=== PATIENT | male | born 1965 | race Caucasian/White ===

== ENCOUNTER → 2019-08-14 11:03 | Outpatient (CLI) | payer BC, SELFPAY ==
--- NOTE | 2019-08-14 11:08 | XR_ITS ---
PROCEDURE: XR ELBOW RT MIN 3V CLINICAL INDICATION: FALL ON RT ELBOW,PAIN/SWELLING Right elbow pain and swelling following injury COMPARISON: No exams were available for comparison FINDINGS: There is a faint lucency along the articular surface of the radial head laterally. This is nonspecific and could be related to artifact from overlying spurring. There is spurring of the radial neck and the coracoid process. No displaced fat pad is evident. Other findings:None. IMPRESSION: There are mild osteoarthritic changes of the elbow joint. There is a questionable subarticular lucency along the radial head laterally possibly due to artifact. Consider follow-up exam in 7-[address] scan for confirmation. Dictated by: Adan Rivera MD 08/14/2019 11:34 Electronically signed by Adan Rivera MD in [place] 08/14/2019 11:34
== END ==
PROVIDERS: PCP Internal Medicine; Visit Provider Internal Medicine
DX: M25.521 Pain in right elbow (principal); M25.421 Effusion, right elbow
CPT/HCPCS: 73080

== ENCOUNTER → 2019-08-22 14:14 | Outpatient (CLI) | payer BC, SELFPAY ==
--- NOTE | 2019-08-22 14:19 | XR_ITS ---
PROCEDURE: XR ELBOW RT MIN 3V CLINICAL INDICATION: right elbow injury Posttraumatic pain and swelling COMPARISON: XR ELBOW RT MIN 3V from 08/14/2019 FINDINGS: Subarticular lucency once again noted at the radial head slightly more prominent and is consistent with radial head fracture not significantly displaced. This is along the lateral aspect of the radial head. There are osteoarthritic changes at elbow joint IMPRESSION: Nondisplaced radial head fracture with osteoarthritis Dictated by: Adan Rivera MD 08/22/2019 18:28 Electronically signed by Adan Rivera MD in [place] 08/22/2019 18:28
== END ==
PROVIDERS: PCP Internal Medicine; Visit Provider Orthopaedic Surgery
DX: S50.01XA Contusion of right elbow, initial encounter (principal); S52.121A Displaced fracture of head of right radius, initial encounter for closed fracture; S59.901A Unspecified injury of right elbow, initial encounter
CPT/HCPCS: 73080

== ENCOUNTER → 2019-09-04 14:45 | Outpatient (CLI) | payer BC, SELFPAY ==
--- NOTE | 2019-09-04 14:52 | XR_ITS ---
PROCEDURE: XR ELBOW RT MIN 3V CLINICAL INDICATION: radial head fx fu Follow-up radial head fracture COMPARISON: XR ELBOW RT MIN 3V from 08/14/2019 XR ELBOW RT MIN 3V from 08/22/2019 FINDINGS: Nondisplaced fracture once again noted involving the lateral aspect of the radial head at the articular surface which is not significantly changed. There are mild osteoarthritic changes at the elbow joint. Mild spurring noted at the radial head anteriorly IMPRESSION: No change nondisplaced radial head fracture with mild osteoarthritis Dictated by: Adan Rivera MD 09/04/2019 15:35 Electronically signed by Adan Rivera MD in [place] 09/04/2019 15:35
== END ==
PROVIDERS: PCP Internal Medicine; Visit Provider Orthopaedic Surgery
DX: S52.121A Displaced fracture of head of right radius, initial encounter for closed fracture (principal)
CPT/HCPCS: 73080; 87070; 87075; 87077; 87205

== ENCOUNTER → 2020-07-18 09:20 | Outpatient (CLI) | payer BC, SELFPAY ==
--- NOTE | 2020-07-18 | CA_ITS ---
APPROVED REPORT Senior Construction Manager: CT Laterality: Bilateral Study Quality: Good Indications: SOB Risk Factors Hypertension: Doppler Spectral Velocity Analysis ECA (R) 78.00/ cm/s ECA (L) 84.00/ cm/s dICA (R) 67.40/21.90 cm/s dICA (L) 58.60/30.40 cm/s Mitra (R) 69.50/31.50 cm/s Mitra (L) 61.60/30.40 cm/s pICA (R) 72.70/30.50 cm/s pICA (L) 50.10/24.30 cm/s dCCA (R) 86.60/31.50 cm/s dCCA (L) 98.00/29.90 cm/s pCCA (R) 132.90/23.10 cm/s pCCA (L) 100.30/23.90 cm/s Vert (R) 29.80/ cm/s Vert (L) 25.00/ cm/s ICA/CCA 0.80 ICA/CCA 0.60 Findings Duplex evaluation demonstrates stenosis of the right proximal internal carotid artery <20% with PSV <140 cm/sec, EDV <100 cm/sec, and IC/CC Ratio <4.0. Duplex evaluation demonstrates stenosis of the left proximal internal carotid artery <20% with PSV <140 cm/sec, EDV <100 cm/sec, and IC/CC Ratio <4.0. Duplex evaluation demonstrates antegrade flow of the bilateral Vertebral Arteries. Electronically signed by : Alba Wilson, 07/18/2020 15:36:57
--- NOTE | 2020-07-18 | CA_ITS ---
APPROVED REPORT EXAM: Comprehensive 2D, Doppler, and color-flow Echocardiogram Braille Proofreader: Jennifer Celestin CRT Ht: 6 ft 1 in Wt: 249lbs BSA: 2.36 BP: 169/107 mmHg Indications: Shortness of Breath, Hypertension/HDD 2D Dimensions LVOT 2.05 cm (M/F) 1.5-2.5 LA Volume 52.80 mL LA Volume Index 22.40 mL/m2 (M/F) 16-34 M-Mode Dimensions RVDd 2.72 cm (0.9-2.6) LA Diam 3.75 cm (1.9-4.0) LVDd 5.58 cm (3.5-5.7) Ao Diam 4.16 cm (2.0-3.7) LVDs 2.63 cm (3.5-5.7) IVSd 1.53 cm (0.6-1.1) PWd 1.03 cm (0.6-1.1) EF (Teich) 83.40% FS 52.90% EDV (Teich) 152.40 mL TAPSE 2.66 (<1.7) ESV (Teich) 25.30 mL LV Diastology E Decel Time 160.00 (160-240 msec) E/A Ratio 1.10 MED E' 7.80 (< 7 cm/sec) MED A' 9.30 cm/s E'/MED E' Ratio 9.47 (>14) LAT E' 10.20 (<10 cm/sec) LAT A' 10.80 cm/s E/LAT E' Ratio 7.25 (>14) Aortic Valve AI PHT 587.00 ms Mitral Valve MV A Velocity 67.00 (40-130 cm/s) E/A Ratio 1.10 MV Decel. Time 160.00 (160-240 ms) Pulmonary Valve PV Peak Velocity 104.00 (50-150 cm/s) Tricuspid Valve TR P. Velocity 270.00 cm/s RAP Estimate 10.00 mmHg RVSP 39.10 mmHg Left Ventricle Left atrium is mildly enlarged, left ventricle is normal size, mild concentric left ventricular hypertrophy, visually estimated ejection fraction 55% with no regional wall motion abnormality, grade 1 diastolic dysfunction seen without tissue Doppler evidence of raise left atrial pressure. Right Ventricle Right atrium and right ventricle are mildly enlarged with normal contractility. Aortic Valve Aortic valve is minimally thickened and fibrosed, there is no aortic stenosis or aortic insufficiency. Mitral Valve Mitral valve grossly normal, there is trace mitral regurgitation. Tricuspid Valve Tricuspid grossly normal, there is trace tricuspid regurgitation. Pulmonic Valve Pulmonic valve is poorly visualized. Great Vessels Aortic root is normal size. Pericardium No significant pericardial effusion noted. Conclusion 1. Mild biatrial enlargement, normal left ventricular size, mild concentric left ventricular hypertrophy, visually estimated ejection fraction 55% with no regional wall motion abnormality, grade 1 diastolic dysfunction seen without tissue Doppler evidence of raise left atrial pressure. 2. Mildly enlarged right ventricle with normal contractility. 3. Trace mitral and tricuspid regurgitation. 4. No significant pericardial effusion noted. Electronically signed by : Junior Barker, 07/19/2020 13:48:02
== END ==
PROVIDERS: PCP Internal Medicine; Visit Provider Internal Medicine
DX: R06.09 Other forms of dyspnea (principal); R09.89 Other specified symptoms and signs involving the circulatory and respiratory systems; I10 Essential (primary) hypertension
CPT/HCPCS: 93306; 93880

== ENCOUNTER → 2021-09-23 12:57 | Outpatient (CLI) | payer BC, SELFPAY ==
--- NOTE | 2021-09-23 13:03 | CT_ITS ---
FINAL REPORT CLINICAL HISTORY: LT FLANK PAIN h/o stones COMPARISON: November 26, 2015 FINDINGS: Axial CT images of the abdomen and pelvis were obtained without intravenous contrast. Coronal reformatted images were also obtained.This study was performed with techniques to keep radiation doses as low as reasonably achievable (ALARA). Individualized dose reduction techniques using automated exposure control or adjustment of mA and/or kV according to the patient's size were employed. Abdomen: There is mild scarring in the lung bases. There are postoperative changes in the stomach. There are multiple bilateral nonobstructing renal stones measuring 3 mm or less. There is no hydronephrosis. The patient is status post cholecystectomy. The liver, spleen and pancreas have an unremarkable, unenhanced appearance. There are multiple mildly enlarged bilateral inguinal nodes, similar to the previous study, which may be reactive. No inflammatory process is identified. Pelvis: Images of the pelvis reveal no evidence of ureteral dilation or ureteral stone.No mass or abnormal fluid collection is identified. The appendix is not identified. IMPRESSION: Postoperative changes in the abdomen. Nonobstructing renal stones. Reviewed, Interpreted and Dictated by Surendra Zurita III, MD Transcribed by Maureen Bautista Authenticated and [facility] [place]
== END ==
PROVIDERS: PCP Internal Medicine; Visit Provider Internal Medicine
DX: R10.9 Unspecified abdominal pain (principal); Z87.442 Personal history of urinary calculi
CPT/HCPCS: 74176

== ENCOUNTER → 2022-06-08 12:46 | Outpatient (CLI) | payer BC, SELFPAY ==
[2022-06-08 13:01] LABS: Adenovirus F 40/41, stool Not Detected (NotDetected); Astrovirus Not Detected (NotDetected); Campylobacter Not Detected (NotDetected); Clostridium Difficile A/B, PCR Not Detected (NotDetected); Cryptosporidium Not Detected (NotDetected); Cyclospora Cayetanesis Not Detected (NotDetected); Entamoeba histolytica Not Detected (NotDetected); Enteroaggregative E coli Not Detected (NotDetected); Enteropathogenic E coli Not Detected (NotDetected); Enterotoxigenic E coli Not Detected (NotDetected); Giardia lamblia Not Detected (NotDetected); Norovirus Not Detected (NotDetected); Plesimonas Shigalloides, PCR Not Detected (NotDetected); Rotavirus A Not Detected (NotDetected); Salmonella, PCR Not Detected (NotDetected); Sapovirus Not Detected (NotDetected); Shiga-like toxin E coli Not Detected (NotDetected); Shigella Enterovasive E coli Not Detected (NotDetected); Vibrio Cholerae Not Detected (NotDetected); Vibrio, PCR Not Detected (NotDetected); Yersinia Entercolitica, PCR Not Detected (NotDetected)
== END ==
PROVIDERS: PCP Internal Medicine; Visit Provider Internal Medicine
DX: R19.7 Diarrhea, unspecified (principal)
CPT/HCPCS: 87507

== ENCOUNTER 2022-11-12 08:29 | Emergency (ER) | payer BC, SELFPAY ==
[2022-11-12 08:29] VITALS: BP 158/88; PULSE 61; RESP 18; TEMP 36.5; O2SAT 99; BMI 31.6
[2022-11-12 08:38] VITALS: BMI 31.6
--- NOTE | 2022-11-12 08:45 | CT_ITS ---
FINAL REPORT TECHNIQUE: Axial images through the abdomen and pelvis were performed without contrast. This study was performed with techniques to keep radiation doses as low as reasonably achievable, (ALARA). Individualized dose reduction techniques using automated exposure control or adjustment of mA and/or kV according to the patient's size were employed. CLINICAL HISTORY: right flank pain COMPARISON: 09/23/2021 FINDINGS: ABDOMEN: The lung bases are clear. The heart size is normal. Limited images of the liver are unremarkable. The spleen is normal. No adrenal mass is identified. The aorta is normal in caliber. There is no significant free fluid or adenopathy. There is high-grade right upper urinary tract obstruction with moderate right hydroureteronephrosis. Obstruction is secondary to a 5 mm right UVJ stone. Tiny, bilateral calyceal stones are present. Patient is status post gastric bypass. PELVIS: The appendix is not identified. There are fluid-filled small bowel loops without dilatation suspicious for ileus. Right ureteral stone is seen on image 107. Prostate is unremarkable. The urinary bladder is unremarkable. There is no significant free fluid or adenopathy. IMPRESSION: High-grade right upper urinary tract obstruction secondary to 5 mm right UVJ stone. Fluid-filled small bowel loops suspicious for ileus. Reviewed, Interpreted and Dictated by Christine Lopez MD Transcribed by Celia Lawson Authenticated and [facility]
--- NOTE | 2022-11-12 08:45 | HMH.EDGENADL ---
Discharge Plan Disposition Patient Disposition: Home, Self-Care Prescriptions Prescriptions: New ibuprofen 800 mg tablet 800 mg PO TID PRN (Reason: pain) 7 Days Qty: 20 0RF hydrocodone-acetaminophen 5-325 mg tablet 1 tab PO Q6H PRN (Reason: pain) 3 Days Qty: 12 0RF tamsulosin [Flomax] 0.4 mg capsule 0.4 mg PO DAILY 7 Days Qty: 7 0RF ondansetron 4 mg tablet,disintegrating 4 mg PO Q6H PRN (Reason: nausea and vomiting) 5 Days Qty: 20 0RF No Action lisinopril 2.5 mg tablet 2.5 mg PO DAILY clindamycin HCl 300 mg capsule 300 mg PO QID 14 Days Qty: 56 0RF Referrals Follow up/Referrals: Joseph Patel MD [Primary Care Provider] - See instructions Activity Restrictions/Add. Instructions Additional Instructions/Restrictions: You have a large distal ureteral stone that is almost passed causing significant hydronephrosis and hydroureter. Please make an appointment with Dr. Ledbetter if not improving in a few days and if not passed the stone. Return with any worsening symptoms including nausea and vomiting that is intractable pain that is intractable or high fevers. Clinical Impressions Clinical Impression: Right ureteral calculus, Hydronephrosis concurrent with and due to calculi of kidney and ureter, Nausea & vomiting Discharge ED Provider: Courtney Barrientos General Adult HPI General Chief complaint: PAIN Stated complaint: possible kidney stones Time Seen by Provider: 11/12/22 08:42 History of Present Illness HPI narrative: Patient is a 57-year-old male here with right flank pain. States he has a history of 19 kidney stones in the past and states this feels similar. This began at 1030 last night he has had multiple episodes of nausea and vomiting associated with this. Does have some urgency but no frequency dysuria or blood in his urine. No fevers. Pain is radiating to his right groin. Symptoms have been severe. Related Data Home Medications Medication Instructions Recorded Confirmed lisinopril 2.5 mg tablet 2.5 mg PO DAILY 09/26/19 09/26/19 Previous Rx's Medication Instructions Recorded clindamycin HCl 300 mg capsule 300 mg PO QID 2 weeks #56 caps 09/26/19 hydrocodone 5 mg-acetaminophen 325 1 tab PO Q6H PRN pain 3 days #12 11/12/22 mg tablet tabs ibuprofen 800 mg tablet 800 mg PO TID PRN pain 7 days #20 11/12/22 tabs ondansetron 4 mg disintegrating 4 mg PO Q6H PRN nausea and 11/12/22 tablet vomiting 5 days #20 tabs tamsulosin 0.4 mg capsule (Flomax) 0.4 mg PO DAILY 7 days #7 caps 11/12/22 Allergies Allergy/AdvReac Type Severity Reaction Status Date / Time No Known Allergies Allergy Verified 09/26/19 15:10 [facility] Disclaimer: The information contained in this section may have been updated after the patient was seen, as this information can be updated by other users. Social History Smoking Status: Never smoker alcohol intake: never counseling provided: none current occupational status: employed Travel in the last 8 weeks: None ROS Obtained: Yes All systems reviewed & no additional complaints except as documented Physical Exam General General appearance: alert Respiratory Respiratory exam: Present normal lung sounds bilaterally Cardiovascular Cardiovascular exam: Present regular rate; Absent tachycardia Abdominal Exam Abdominal exam: Present soft; Absent distention or tenderness Back Exam Back exam: Present CVA tenderness (R); Absent CVA tenderness (L) Neurological Exam Neurological exam: Present alert and oriented X3 Medical Decision Making [place] Inquiry Pt receiving controlled substance: No Vital Signs: 11/12/22 08:29 11/12/22 09:01 Temperature 97.7 F Temperature Source Oral Pulse Rate 69 Pulse Rate [Left Radial] 61 Respiratory Rate 18 20 Blood Pressure 146/84 H Blood Pressure [Right Arm] 158/88 H Blood Pressure Mean 107 Blood Pressure Mean [Right Arm] 111 Blood Pressure Source [Right Arm] Automatic Cuff Blood
--- NOTE | 2022-11-12 08:54 | PC.NURSE ---
urine sent to lab. sonography technician states that it was not enough urine to test
[2022-11-12 09:01] VITALS: BP 146/84; PULSE 69; RESP 20; O2SAT 99
[2022-11-12 09:06] LABS: Basophils % 0.3 % (0.1-2.0); Eosinophils % 0.4 % (0.1-12.0); Hematocrit 45.2 % (42.0-52.0); Hemoglobin 14.1 g/dL (14.1-18.0); Lymphocytes # 0.8 K/mm3 (0.7-4.5); Lymphocytes % 6.4 % (10-50); Mean Corpuscular HGB Conc 31.2 g/dL (31.8-35.4); Mean Corpuscular Hemoglobin 25.9 pg (27.0-31.2); Mean Corpuscular Volume 82.9 fl (80-94); Mean Platelet Volume 8.4 fl (7.4-10.4); Monocytes # 0.5 K/mm3 (0.1-1.0); Monocytes % 3.9 % (1.7-9.3); Neutrophils # 10.7 K/mm3 (1.8-7.8); Neutrophils % 89.1 % (37.0-80.0); Platelet Count 259 K/mm3 (142-424); Red Blood Count 5.46 M/mm3 (4.60-6.20); Red Cell Distribution Width 16.7 % (11.5-17.5)
[2022-11-12 09:07] LABS: MANUAL DIFFERENTIAL MANUAL DIFFERENTIAL (MANUAL DIFF)
[2022-11-12 09:13] LABS: Alanine Aminotransferase 31 U/L (12-78); Albumin/Globulin Ratio 1.9 (1.1-1.8); Alkaline Phosphatase 120 U/L (38-126); Anion Gap 13.2 mEq/L (5-15); Aspartate Amino Transferase 34 U/L (17-59); Bilirubin,Total 0.4 mg/dl (0.2-1.3); Blood Urea Nitrogen 14 mg/dl (9-20); Calcium 9.5 mg/dl (8.4-10.2); Carbon Dioxide 28 mmol/L (22.0-30.0); Chloride 108 mmol/L (98-107); Creatinine Clearance Estimated 129 mL/min (50-200); Estimated Glomerular Filt Rate 78 ml/min (>60); GFR (African American) 94 ML/MIN (>60); Globulin 2.7 g/dL (1.3-3.2); Glucose 133 mg/dl (74-100); Potassium 4.2 mmoL/L (3.5-5.1); Sodium 145 mmol/L (136-145); Total Protein,Serum 7.7 g/dl (6.3-8.2)
[2022-11-12 09:28] LABS: Lymphocytes % 7 % (10-50); Monocytes % 3 % (2-9); Neutrophils % 90 % (42-76); Platelet Estimate Normal; RBC Morphology Normal; Total Cells Counted 100
[2022-11-12 09:30] VITALS: BP 161/95; PULSE 74; O2SAT 97
[2022-11-12 10:01] VITALS: BP 136/100; PULSE 64; RESP 20; O2SAT 97
[2022-11-12 10:13] LABS: Microscopic, Urine URINE MICROSCOPIC (MICROSCOPIC)
[2022-11-12 10:14] LABS: Appearance,Urine SL CLOUDY (Clear); Blood, Urine 3+ (Negative); Color,Urine YELLOW (Yellow); Glucose,Urine (UA) Negative (Negative); Ketones,Urine TRACE (Negative); Leukocyte Esterase,Urine Negative (Negative); Nitrate,Urine Negative (Negative); Protein,Urine 1+ (Negative); Specific Gravity, Urine >= 1.030 (1.005-1.030); Urobilinogen,Urine 0.2 EU/dl (0.2)
[2022-11-12 10:18] LABS: Bilirubin,Urine 1+ (Negative)
[2022-11-12 10:30] VITALS: BP 130/91; PULSE 66; RESP 20; O2SAT 98
[2022-11-12 10:41] LABS: Bacteria,Urine 1+ /lpf; Mucus,Urine Trace /lpf; RBC,Urine TNTC #/hpf (0-3); Squamous Epithelial Cell,Urine Occasional #/hpf (0-5)
[2022-11-12 10:55] VITALS: BP 130/91; PULSE 64; RESP 17; TEMP 36.6; O2SAT 97
== END 2022-11-12 10:55 | disposition home or self-care (01) ==
PROVIDERS: Emergency Provider Student in an Organized Health Care Education/Training Program; PCP Internal Medicine
DX: R10.9 Unspecified abdominal pain (principal); N13.2 Hydronephrosis with renal and ureteral calculous obstruction
CPT/HCPCS: 74176; 80053; 81001; 85007; 85025; 96361; 96374; 96375; 99285; J2405

== ENCOUNTER 2023-02-14 16:06 | Emergency (ER) | payer BC, SELFPAY ==
[2023-02-14 16:06] VITALS: BP 156/99; PULSE 71; RESP 18; TEMP 36.8; O2SAT 99; BMI 32.0
--- NOTE | 2023-02-14 16:39 | EXP.UTC ---
Discharge Plan Disposition Patient Disposition: Home, Self-Care Condition: Good Prescriptions Prescriptions: New sulfamethoxazole-trimethoprim [Bactrim DS] 800-160 mg Tablet 1 tab PO BID Qty: 20 0RF cephalexin 500 mg capsule 500 mg PO QID Qty: 40 0RF mupirocin 2 % ointment 1 applic topical TID 7 Days Qty: 15 0RF No Action lisinopril 2.5 mg tablet 2.5 mg PO DAILY clindamycin HCl 300 mg capsule 300 mg PO QID 14 Days Qty: 56 0RF ibuprofen 800 mg tablet 800 mg PO TID PRN (Reason: pain) 7 Days Qty: 20 0RF hydrocodone-acetaminophen 5-325 mg tablet 1 tab PO Q6H PRN (Reason: pain) 3 Days Qty: 12 0RF tamsulosin [Flomax] 0.4 mg capsule 0.4 mg PO DAILY 7 Days Qty: 7 0RF ondansetron 4 mg tablet,disintegrating 4 mg PO Q6H PRN (Reason: nausea and vomiting) 5 Days Qty: 20 0RF Referrals Follow up/Referrals: Joseph Patel MD [Primary Care Provider] - See instructions Activity Restrictions/Add. Instructions Additional Instructions/Restrictions: Keep the affected area clean and dry. Follow up with your regular doctor. Take the antibiotics as directed and apply the topical antibiotics as directed. Apply warm wet compresses to the affected area three or four times per day. GO TO THE ER FOR ANY WORSENING SYMPTOMS Clinical Impressions Clinical Impression: Cutaneous abscess of neck Instructions Patient Instructions: Boil Discharge ED Provider: Shayne Mckinney [facility] General Stated complaint: sore on back of neck Mode of Arrival: Ambulatory Source of Information: Patient Limitations: No Limitations Time Seen by Provider: 02/14/23 16:39 Description of Symptoms (Recalled from Triage Doc. by RN): Pt has a spot on the back of his neck. He thinks it may be a weld burn. HEENT Symptoms (Recalled from RN notes): No Resp Symptoms (Recalled from RN notes): No Skin Symptoms (Recalled from RN notes): Yes MS Symptoms (Recalled from RN notes): No Functional Status (Recalled from RN notes): n/a History of Present Illness Provider Complaint: He states that for the past 1 week he has had a worsening swollen area on the back of his neck. He denies any injury. Related Data Home Medications Medication Instructions Recorded Confirmed lisinopril 2.5 mg tablet 2.5 mg PO DAILY 09/26/19 09/26/19 Previous Rx's Medication Instructions Recorded clindamycin HCl 300 mg capsule 300 mg PO QID 2 weeks #56 caps 09/26/19 hydrocodone 5 mg-acetaminophen 325 1 tab PO Q6H PRN pain 3 days #12 11/12/22 mg tablet tabs ibuprofen 800 mg tablet 800 mg PO TID PRN pain 7 days #20 11/12/22 tabs ondansetron 4 mg disintegrating 4 mg PO Q6H PRN nausea and 11/12/22 tablet vomiting 5 days #20 tabs tamsulosin 0.4 mg capsule (Flomax) 0.4 mg PO DAILY 7 days #7 caps 11/12/22 cephalexin 500 mg capsule 500 mg PO QID #40 caps 02/14/23 mupirocin 2 % topical ointment 1 applic topical TID 7 days #15 02/14/23 grams sulfamethoxazole 800 1 tab PO BID #20 tabs 02/14/23 mg-trimethoprim 160 mg tablet (Bactrim DS) Allergies Allergy/AdvReac Type Severity Reaction Status Date / Time No Known Allergies Allergy Verified 09/26/19 15:10 Worker's Comp Is this a Worker's Comp case?: No [facility] Disclaimer: The information contained in this section may have been updated after the patient was seen, as this information can be updated by other users. Social History Smoking Status: Never smoker alcohol intake: never counseling provided: none current occupational status: employed Travel in the last 8 weeks: None ROS Obtained: Yes All systems reviewed & no additional complaints except as documented Constitutional Constitutional: Denies chills and Denies fever(s) Eyes Eyes: Denies eye discharge ENT Ears, Nose, Mouth, and Throat: Denies dizziness, Denies otalgia and Denies sore throat Cardiovascular Cardiovascular: Denies chest pain Respiratory Respiratory: Denies shortness of breath,
[2023-02-14 17:55] VITALS: BP 156/99; PULSE 71; RESP 18; TEMP 36.8; O2SAT 99
== END 2023-02-14 17:55 | disposition home or self-care (01) ==
PROVIDERS: Emergency Provider Nurse Practitioner Family; PCP Internal Medicine
DX: L02.11 Cutaneous abscess of neck (principal)
CPT/HCPCS: 87070; 87205; 96372; 99204; 99212; G0463; J0696

== ENCOUNTER 2023-11-03 12:02 | Outpatient (CLI) | payer BC, SELFPAY ==
--- NOTE | 2023-11-03 12:06 | XR_ITS ---
FINAL REPORT CLINICAL HISTORY: Right lateral knee and leg pain FINDINGS: AP, lateral and oblique views of the right knee were obtained. There is no prior exam for comparison. There is no acute osseous abnormality of the right knee. There is mild degenerative joint disease. The soft tissues are normal. There is no joint effusion. IMPRESSION: No acute osseous abnormality of the right knee. Reviewed, Interpreted and Dictated by Janie Fonseca MD Transcribed by Celia Lawson Authenticated and [facility]
--- NOTE | 2023-11-03 12:06 | XR_ITS ---
FINAL REPORT CLINICAL HISTORY: Right lateral knee and leg pain FINDINGS: AP and lateral views of the right tibia and fibula were obtained. There is no prior exam for comparison. There is no acute fracture of the right tibia or fibula. The knee and ankle appear intact. The soft tissues are normal. IMPRESSION: No acute osseous abnormality of the right tibia or fibula. Reviewed, Interpreted and Dictated by Janie Fonseca MD Transcribed by Celia Lawson Authenticated and [facility]
[2023-11-03 17:15] LABS: Basophils % 0.9 % (0.1-2.0); Eosinophils # 0.2 K/mm3 (0.0-0.4); Eosinophils % 5.1 % (0.1-12.0); Hematocrit 41.4 % (42.0-52.0); Hemoglobin 13.1 g/dL (14.1-18.0); Lymphocytes # 1.1 K/mm3 (0.7-4.5); Lymphocytes % 24.5 % (10-50); Mean Corpuscular HGB Conc 31.8 g/dL (31.8-35.4); Mean Corpuscular Hemoglobin 26.7 pg (27.0-31.2); Mean Corpuscular Volume 83.9 fl (80-94); Mean Platelet Volume 8.4 fl (7.4-10.4); Monocytes # 0.4 K/mm3 (0.1-1.0); Monocytes % 7.7 % (1.7-9.3); Neutrophils # 2.8 K/mm3 (1.8-7.8); Neutrophils % 61.8 % (37.0-80.0); Platelet Count 235 K/mm3 (142-424); Red Blood Count 4.93 M/mm3 (4.60-6.20); Red Cell Distribution Width 16.8 % (11.5-17.5); White Blood Count 4.5 K/mm3 (4.8-10.8)
[2023-11-03 17:39] LABS: Alanine Aminotransferase 21 U/L (12-78); Albumin Level 3.9 g/dl (3.5-5.0); Albumin/Globulin Ratio 1.7 (1.1-1.8); Alkaline Phosphatase 92 U/L (38-126); Anion Gap 11.3 mEq/L (5-15); Aspartate Amino Transferase 27 U/L (17-59); Bilirubin,Total 0.7 mg/dl (0.2-1.3); Blood Urea Nitrogen 15 mg/dl (9-20); Calcium 8.8 mg/dl (8.4-10.2); Carbon Dioxide 26 mmol/L (22.0-30.0); Chloride 107 mmol/L (98-107); Estimated Glomerular Filt Rate 100 ml/min (>60); GFR (African American) 121 ML/MIN (>60); Globulin 2.3 g/dL (1.3-3.2); Glucose 82 mg/dl (74-100); Potassium 4.3 mmoL/L (3.5-5.1); Sodium 140 mmol/L (136-145); Total Protein,Serum 6.2 g/dl (6.3-8.2); Uric Acid 6.6 mg/dl (3.5-8.5)
== END 2023-11-03 23:59 | disposition home or self-care (01) ==
LOC: RAD 12:04
PROVIDERS: PCP Internal Medicine; Visit Provider Internal Medicine
DX: M25.561 Pain in right knee (principal); M79.661 Pain in right lower leg; I10 Essential (primary) hypertension; E78.5 Hyperlipidemia, unspecified; N20.0 Calculus of kidney; Z12.5 Encounter for screening for malignant neoplasm of prostate
CPT/HCPCS: 73562; 73590; 80053; 84550; 85025; G0103

== ENCOUNTER 2023-11-03 12:26 | Outpatient (CLI) | payer BC, SELFPAY ==
[2023-11-04 17:23] LABS: Cholesterol 151 mg/dl (140-200); Iron 68 ug/dL (49-181); Triglycerides 79 mg/dl (30-150); VLDL Cholesterol 16 mg/dL (0-40)
[2023-11-04 17:24] LABS: Chol/HDL Ratio 4.1 (1-3.5); HDL Cholesterol 37 mg/dl (40-60)
[2023-11-04 17:33] LABS: Total Iron Binding Capacity 402 ug/dL (261-462)
[2023-11-04 17:34] LABS: Direct LDL Cholesterol 92.37 mg/dL (100-129)
== END 2023-11-03 23:59 | disposition home or self-care (01) ==
LOC: LAB.DROPOF 11-07 12:27
PROVIDERS: PCP Internal Medicine; Visit Provider Internal Medicine
DX: E78.5 Hyperlipidemia, unspecified (principal); D64.9 Anemia, unspecified
CPT/HCPCS: 80061; 83540; 83550

== ENCOUNTER 2023-11-08 07:58 | Emergency (ER) | payer BC, SELFPAY ==
[2023-11-08] VITALS (8 sets, daily range): BP systolic 140–163; BP diastolic 88–101; PULSE 50–64; RESP 16–18; TEMP 37; O2SAT 97–100; BMI 31.1
--- NOTE | 2023-11-08 08:29 | CT_ITS ---
FINAL REPORT TECHNIQUE: Noncontrast CT exam of the abdomen and pelvis. This study was performed with techniques to keep radiation doses as low as reasonably achievable (ALARA). Individualized dose reduction techniques using automated exposure control or adjustment of mA and/or kV according to the patient''s size were employed. CLINICAL HISTORY: L flank pain/n/v COMPARISON: 11/12/2022 FINDINGS: Abdomen: Lung bases are clear. Liver, spleen, pancreas and adrenal glands have a normal CT appearance in their limited unenhanced state. There is moderate left hydronephrosis and hydroureter which is new from the prior exam. Findings are secondary to a left UVJ stone measuring 6 mm. Multiple bilateral calyceal stones are seen. There is an extrarenal pelvis in the right kidney without evidence of active obstruction. No obvious renal mass is present. There is mild mesentery adenopathy which appears stable and likely related to adenitis. There is no bowel obstruction. Pelvis: The left UVJ stone is seen on image 113. The appendix is not visualized and is presumably surgically absent. There is no significant free fluid. Mild bilateral inguinal adenopathy is stable and favored to be reactive. IMPRESSION: High-grade upper urinary tract obstruction secondary to a 6 mm UVJ stone. Bilateral nephrolithiasis. Reviewed, Interpreted and Dictated by Christine Lopez MD Transcribed by Kait Pandya Authenticated and . [facility]
[2023-11-08] MEDS: LACTATED RINGERS 1000ML 1,000 ML 999 ML IV (08:30)
[2023-11-08] MEDS: KETOROLAC 30MG/ML VIAL 15 MG IV (08:30)
[2023-11-08] MEDS: ONDANSETRON 4MG/2ML VIAL 4 MG IV (08:30)
--- NOTE | 2023-11-08 08:34 | ED_ITS ---
Discharge Plan Disposition Patient Disposition: Home, Self-Care Condition: Good Prescriptions Prescriptions: New oxycodone 5 mg tablet 5 mg PO Q8H PRN (Reason: pain) Qty: 12 0RF ketorolac 10 mg tablet 10 mg PO Q8H PRN (Reason: pain) Qty: 12 0RF ondansetron HCl 4 mg tablet 4 mg PO Q8H PRN (Reason: nausea and vomiting) 4 Days Qty: 12 0RF tamsulosin [Flomax] 0.4 mg capsule 0.4 mg PO DAILY Qty: 7 0RF No Action gabapentin 300 mg capsule 300 mg PO HS Patient Comments: TAKE 1 CAPSULE BY MOUTH ONCE DAILY lidocaine 5 % adhesive patch,medicated 1 patch topical DAILY Qty: 30 3RF Rx Instructions: leave on most painful area for up to 12 hrs temazepam 15 mg capsule 15 mg PO HS PRN (Reason: sleep) Qty: 30 0RF amlodipine 5 mg tablet 5 mg PO DAILY Qty: 90 1RF lisinopril 20 mg tablet See Rx Instructions .ROUTE .COMPLEX Qty: 90 1RF Dose Instruction: Take 1 tablet by mouth once daily Rx Instructions: Take 1 tablet by mouth once daily tamsulosin [Flomax] 0.4 mg capsule 0.4 mg PO DAILY 7 Days Qty: 7 0RF ondansetron 4 mg tablet,disintegrating 4 mg PO Q6H PRN (Reason: nausea and vomiting) 5 Days Qty: 20 0RF Referrals Follow up/Referrals: Joseph Patel MD [Primary Care Provider] - See instructions Activity Restrictions/Add. Instructions Additional Instructions/Restrictions: You were evaluated in the emergency department today. You have a large left kidney stone. Please follow-up closely with a urologist of your choosing over the next 3 to 4 days. 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 You may also take Tylenol every 4-6 hours as needed[address] Do not drive or operate heavy machinery while taking narcotic pain medication. Return to the emergency department for new or worsening symptoms, such as significant worsening of pain, intractable nausea and vomiting, or fever greater than 100.4 ?F. Clinical Impressions Clinical Impression: Ureterolithiasis Stand Alone Forms Stand Alone Forms: Work/School Release Instructions Patient Instructions: DI for Kidney Stones, DI for Acute Abdominal Pain Discharge ED Provider: Sherry Rosas General Adult HPI General Chief complaint: Abdominal Pain Stated complaint: possible kidney stone Time Seen by Provider: 11/08/23 08:02 History of Present Illness HPI narrative: This patient is a 58-year-old male with a history of kidney stones, hypertension, hyperlipidemia, previous blood clot not on anticoagulation presenting to the emergency department because he thinks he has a kidney stone. He states that he woke up at 659 this morning with acute onset left flank pain that feels the same as prior kidney stones. He also notes nausea and nonbloody nonbilious emesis. No fevers, chills, chest pain, shortness of breath, or other concerns. Related Data Home Medications Medication Instructions Recorded Confirmed gabapentin 300 mg capsule 300 mg PO HS 11/03/23 11/03/23 Previous Rx's Medication Instructions Recorded ondansetron 4 mg disintegrating 4 mg PO Q6H PRN nausea and 11/12/22 tablet vomiting 5 days #20 tabs tamsulosin 0.4 mg capsule (Flomax) 0.4 mg PO DAILY 7 days #7 caps 11/12/22 temazepam 15 mg capsule 15 mg PO HS PRN sleep #30 caps 10/18/23 amlodipine 5 mg tablet 5 mg PO DAILY #90 tabs 11/01/23 lisinopril 20 mg tablet See Rx Instructions .Route 11/01/23 .COMPLEX #90 tabs lidocaine 5 % topical patch 1 patch topical DAILY #30 ea 11/03/23 ketorolac 10 mg tablet 10 mg PO Q8H PRN pain #12 tabs 11/08/23 ondansetron HCl 4 mg tablet 4 mg PO Q8H PRN nausea and 11/08/23 vomiting 4 days #12 tabs oxycodone 5 mg tablet 5 mg PO Q8H PRN pain #12 tabs 11/08/23 tamsulosin 0.4 mg capsule (Flomax) 0.4 mg PO DAILY #7 caps 11/08/23 Allergies Allergy/AdvReac Type Severity Reaction Status Date / Time No Known Allergies Allergy Verified 11/03/23 11:07 [facility] Disclaimer: The information contained in this section may have been updated after the patient was seen, as this information can be updated by other users. Medical History Kidney calculi Social History Smoking Status: Never smoker alcohol intake: never counseling provided: none current occupational status: employed Travel in the last 8 weeks: None ROS Obtained: Yes All systems reviewed & no additional complaints except as documented Physical Exam General General appearance: alert and obese Comment: Uncomfortable appearing Head Head exam: atraumatic and normocephalic Eye Eye exam: Present normal appearance, PERRL and EOMI ENT ENT exam: Present normal exam, normal oropharynx, mucous membranes moist and normal external ear exam Neck Neck exam: Present normal inspection, full ROM and trachea midline; Absent tenderness Chest Chest inspection: Present normal inspection and symmetric chest wall rise; Absent tenderness Respiratory Respiratory exam: Present normal lung sounds bilaterally; Absent respiratory distress, wheezes, stridor or accessory muscle use Cardiovascular Cardiovascular exam: Present regular rate and normal rhythm Abdominal Exam Abdominal exam: Present soft; Absent distention, tenderness or guarding Extremities Exam Extremities exam: Present normal inspection, full ROM and normal capillary refill; Absent tenderness or edema Back Exam Back exam: Present full ROM and CVA tenderness (L) Neurological Exam Neurological exam: Present alert, oriented X3, CN II-XII intact and normal gait; Absent motor sensory deficit Psychiatric Psychiatric exam: Present normal affect and normal mood Skin Skin exam: Present warm and dry Medical Decision Making Medical Records Medical records reviewed: Yes I reviewed the patient's medical records. [place] Inquiry Pt receiving controlled substance: Yes [place] was queried for this patient: Yes Risks and benefits of using a controlled substance: were discussed with pt by me Vital Signs: 11/08/23 07:59 11/08/23 08:12 11/08/23 08:30 Temperature 98.6 F Temperature Source Oral Pulse Rate 64 Pulse Rate [Left Radial] 61 Respiratory Rate 18 Blood Pressure 158/90 H 155/91 H Blood Pressure [Right Arm] 158/90 H Blood Pressure Mean 112 112 Blood Pressure Mean [Right Arm] 112 Blood Pressure Source [Right Arm] Automatic Cuff Blood Pressure Position [Right Arm] Sitting 02 Sat by Pulse Oximetry 99 98 Oxygen Delivery Method Room Air 11/08/23 09:00 11/08/23 10:00 11/08/23 10:30 Temperature Temperature Source Pulse Rate 59 L 64 57 L Pulse Rate [Left Radial] Respiratory Rate Blood Pressure 163/101 H 146/89 H 154/88 H Blood Pressure [Right Arm] Blood Pressure Mean 109 104 95 Blood Pressure Mean [Right Arm] Blood Pressure Source [Right Arm] Blood Pressure Position [Right Arm] 02 Sat by Pulse Oximetry 97 99 98 Oxygen Delivery Method 11/08/23 11:00 11/08/23 11:22 Temperature 98.6 F Temperature Source Pulse Rate 50 L 59 L Pulse Rate [Left Radial] Respiratory Rate 16 Blood Pressure 140/89 140/89 Blood Pressure [Right Arm] Blood Pressure Mean 97 Blood Pressure Mean [Right Arm] Blood Pressure Source [Right Arm] Blood Pressure Position [Right Arm] 02 Sat by Pulse Oximetry 100 Oxygen Delivery Method Room Air Lab Data Lab results reviewed: Yes I reviewed the patient's lab results. Lab Results 11/08/23 08:15: WBC 6.0, RBC 5.08, Hgb 13.6 L, Hct 43.1, MCV 84.8, MCH 26.7 L, M CHC 31.5 L, RDW 16.9, Plt Count 247, MPV 8.0, Neut % (Auto) 72.4, Lymph % (Auto) 17.6, [place] % (Auto) 4.5, Eos % (Auto) 5.0, Baso % (Auto) 0.5, Neut # (Auto) 4.3, Lymph # (Auto) 1.1, [place] # (Auto) 0.3, Eos # (Auto) 0.3, Baso # (Auto) 0.0, Sodium 142, Potassium 3.9, Chloride 108 H, Carbon Dioxide 28, Anion Gap 9.9, BUN 18, Creatinine 0.90, Estimated Creat Clear 139, Estimated GFR 87, Est GFR ( Amer) 106, Glucose 107 H, Calcium 9.2, Total Bilirubin 0.6, AST 37, ALT 27, Alkaline Phosphatase 81, Total Protein 7.0, Albumin 4.2, Globulin 2.8, Albumin/Globulin Ratio 1.5, Lipase 100, Urine Color Yellow, Urine Appearance Clear, Urine pH 6.0, Ur Specific [place] 1.025, Urine Protein Trace, Urine Glucose (UA) Negative, Urine Ketones Negative, Urine Blood 2+, Urine Nitrate Negative, Urine Bilirubin Negative, Urine Urobilinogen 0.2, Ur Leukocyte Esterase Trace, Urine RBC 10-20, Urine WBC 3-5, Ur Squamous Epith Cells Occasional, Calcium Oxalate Crystal 3+, Urine Bacteria Trace, Urine Mucus Trace 11/08/23 08:15 11/08/23 08:15 Orders (Tests/Meds): ED MEDICATIONS Discontinued Medications Generic Name Dose Route Start Last Admin Trade Name Eligio PRN Reason Stop Dose Admin Acetaminophen 1,000 mg 11/08/23 08:30 11/08/23 08:50 Acetaminophen 500mg Tab PO 11/08/23 08:31 1,000 mg ONCE ONE Administration Lactated Ringer's 1,000 mls @ 999 mls/hr 11/08/23 08:30 11/08/23 08:30 Lactated Ringer's 1000 Ml Bag IV 11/08/23 09:30 999 mls/hr .Q1H1M ONE Administration Ketorolac Tromethamine 15 mg 11/08/23 08:30 11/08/23 08:30 Ketorolac 30mg/Ml Vial IV 11/08/23 08:31 15 mg ONCE ONE Administration Morphine Sulfate 4 mg 11/08/23 08:30 11/08/23 08:49 Morphine 4mg/Ml Syringe IV 11/08/23 08:31 4 mg ONCE ONE Administration Ondansetron HCl 4 mg 11/08/23 08:30 11/08/23 08:30 Ondansetron 4mg/2ml Vial IV 11/08/23 08:31 4 mg ONCE ONE Administration ORDERS Category Date Time Status CT abdomen pelvis wo con Stat Cat Scan 11/08/23 08:29 Completed Complete Blood Count Auto Diff Stat Lab 11/08/23 08:15 Completed Comprehensive Metabolic Panel Stat Lab 11/08/23 08:15 Completed Lipase Stat Lab 11/08/23 08:15 Completed UA [Urinalysis and Microscopic] Stat Lab 11/08/23 08:15 Completed Medical Decision Narrative: In summary, this patient is a 58-year-old male presenting to the Emergency Department for evaluation of left flank pain. Differential diagnoses considered include but are not limited to ureterolithiasis, pyelonephritis, cystitis, colitis. Ruling out the most morbid conditions drove assessment. It should be noted patient's history includes hypertension, hyperlipidemia, kidney stones which may or may not be at goal therapy. This complicates all aspects of care by increasing patient's risk for morbidity. On exam, the patient is uncomfortable appearing with left CVA tenderness. Workup included CBC, CMP, lipase, urinalysis, and CT abdomen pelvis without IV contrast. Is given a bolus of IV fluids as well as IV Toradol, IV morphine, IV Zofran, and oral Tylenol for symptomatic improvement. I independently interpreted CT scan prior to the radiologist read and noted obstructive left ureterolithiasis. Please see their read for final interpretation. Labs were obtained that demonstrated hematuria but normal kidney function and no evidence of UTI. On reassessment, patient had good improvement after administration of interventions above. He is resting comfortably and states that he feels appropriate with discharge home with expectant management and trial of passage of kidney stone. I advised that he follow-up very closely with a primary care provider and urologist as well as hydrate orally. I gave him prescriptions for oxycodone, Flomax, Toradol, and Zofran. He was given strict return precautions, such as fever, intractable nausea vomiting, or worsening in pain. Critical Care Critical Care Time Critical Care Time: No
[2023-11-08 08:35] LABS: Basophils % 0.5 % (0.1-2.0); Eosinophils # 0.3 K/mm3 (0.0-0.4); Hematocrit 43.1 % (42.0-52.0); Hemoglobin 13.6 g/dL (14.1-18.0); Lymphocytes # 1.1 K/mm3 (0.7-4.5); Lymphocytes % 17.6 % (10-50); Mean Corpuscular HGB Conc 31.5 g/dL (31.8-35.4); Mean Corpuscular Hemoglobin 26.7 pg (27.0-31.2); Mean Corpuscular Volume 84.8 fl (80-94); Monocytes # 0.3 K/mm3 (0.1-1.0); Monocytes % 4.5 % (1.7-9.3); Neutrophils # 4.3 K/mm3 (1.8-7.8); Neutrophils % 72.4 % (37.0-80.0); Platelet Count 247 K/mm3 (142-424); Red Blood Count 5.08 M/mm3 (4.60-6.20); Red Cell Distribution Width 16.9 % (11.5-17.5)
[2023-11-08 08:38] LABS: Microscopic, Urine URINE MICROSCOPIC (MICROSCOPIC)
[2023-11-08] MEDS: MORPHINE 4MG/ML SYRINGE 4 MG IV (08:49)
[2023-11-08] MEDS: ACETAMINOPHEN 500MG TAB 1000 MG PO (08:50)
[2023-11-08 09:00] LABS: Alanine Aminotransferase 27 U/L (12-78); Albumin Level 4.2 g/dl (3.5-5.0); Albumin/Globulin Ratio 1.5 (1.1-1.8); Alkaline Phosphatase 81 U/L (38-126); Anion Gap 9.9 mEq/L (5-15); Aspartate Amino Transferase 37 U/L (17-59); Bilirubin,Total 0.6 mg/dl (0.2-1.3); Blood Urea Nitrogen 18 mg/dl (9-20); Calcium 9.2 mg/dl (8.4-10.2); Carbon Dioxide 28 mmol/L (22.0-30.0); Chloride 108 mmol/L (98-107); Creatinine Clearance Estimated 139 mL/min (50-200); Estimated Glomerular Filt Rate 87 ml/min (>60); GFR (African American) 106 ML/MIN (>60); Globulin 2.8 g/dL (1.3-3.2); Glucose 107 mg/dl (74-100); Lipase 100 U/L (23-300); Potassium 3.9 mmoL/L (3.5-5.1); Sodium 142 mmol/L (136-145)
[2023-11-08 09:05] LABS: Appearance,Urine CLEAR (Clear); Bilirubin,Urine Negative (Negative); Blood, Urine 2+ (Negative); Color,Urine YELLOW (Yellow); Glucose,Urine (UA) Negative (Negative); Ketones,Urine Negative (Negative); Leukocyte Esterase,Urine TRACE (Negative); Nitrate,Urine Negative (Negative); Protein,Urine TRACE (Negative); Specific Gravity, Urine 1.025 (1.005-1.030); Urobilinogen,Urine 0.2 EU/dl (0.2)
[2023-11-08 09:22] LABS: Calcium Oxalate Crystals,Urine 3+ /lpf
[2023-11-08 09:24] LABS: Bacteria,Urine Trace /lpf; Mucus,Urine Trace /lpf
[2023-11-08 09:25] LABS: Squamous Epithelial Cell,Urine Occasional #/hpf (0-5)
--- NOTE | 2023-11-08 09:28 | PC.NURSE ---
pt going to CT
--- NOTE | 2023-11-08 10:46 | PC.NURSE ---
rounded on pt, updated on poc, no needs at this time, call light in reach
== END 2023-11-08 11:23 | disposition home or self-care (01) ==
PROVIDERS: Emergency Provider Emergency Medicine; PCP Internal Medicine
DX: N20.1 Calculus of ureter (principal); R10.32 Left lower quadrant pain; M54.59 Other low back pain
CPT/HCPCS: 74176; 80053; 81001; 83690; 85025; 96361; 96374; 96375; 99285; J1885; J2270; J2405; J7120

== ENCOUNTER 2023-12-15 14:53 | Outpatient (CLI) | payer BC, SELFPAY ==
[2023-12-15 15:27] LABS: Basophils # 0.1 K/mm3 (0-0.2); Basophils % 1.1 % (0.1-2.0); Eosinophils # 0.3 K/mm3 (0.0-0.4); Eosinophils % 5.2 % (0.1-12.0); Hematocrit 40.3 % (42.0-52.0); Hemoglobin 12.4 g/dL (14.1-18.0); Lymphocytes # 1.4 K/mm3 (0.7-4.5); Lymphocytes % 27.3 % (10-50); Mean Corpuscular HGB Conc 30.7 g/dL (31.8-35.4); Mean Corpuscular Hemoglobin 26.6 pg (27.0-31.2); Mean Corpuscular Volume 86.6 fl (80-94); Mean Platelet Volume 8.3 fl (7.4-10.4); Monocytes # 0.3 K/mm3 (0.1-1.0); Monocytes % 6.3 % (1.7-9.3); Neutrophils # 3.2 K/mm3 (1.8-7.8); Neutrophils % 60.2 % (37.0-80.0); Platelet Count 230 K/mm3 (142-424); Red Blood Count 4.66 M/mm3 (4.60-6.20); Red Cell Distribution Width 16.4 % (11.5-17.5); Reticulocyte % (Auto) 1.3 % (0.9-3.2); White Blood Count 5.3 K/mm3 (4.8-10.8)
== END 2023-12-15 23:59 | disposition home or self-care (01) ==
PROVIDERS: PCP Internal Medicine; Visit Provider Internal Medicine
DX: R89.9 Unspecified abnormal finding in specimens from other organs, systems and tissues (principal); N20.0 Calculus of kidney
CPT/HCPCS: 36415; 85025; 85044

== ENCOUNTER 2023-12-26 16:40 | Outpatient (CLI) | payer BC, SELFPAY ==
[2023-12-26 22:53] LABS: Vitamin B12 173 pg/mL (239-931)
== END 2023-12-26 23:59 | disposition home or self-care (01) ==
LOC: LAB.DROPOF 16:42
PROVIDERS: PCP Internal Medicine; Visit Provider Internal Medicine
DX: D64.9 Anemia, unspecified (principal)
CPT/HCPCS: 82607

== ENCOUNTER 2024-01-31 15:47 | Emergency (ER) | payer BC, SELFPAY ==
[2024-01-31 16:40] VITALS: BP 137/81; PULSE 69; RESP 20; TEMP 36.6; O2SAT 99; BMI 31.1
--- NOTE | 2024-01-31 16:46 | EXP.UTC ---
Discharge Plan Disposition Patient Disposition: Home, Self-Care Condition: Good Prescriptions Prescriptions: New cephalexin 500 mg capsule 500 mg PO QID 10 Days Qty: 40 0RF mupirocin 2 % ointment 1 applic topical TID 7 Days Qty: 15 0RF No Action amlodipine 5 mg tablet 5 mg PO DAILY Qty: 90 1RF lisinopril 20 mg tablet See Rx Instructions .ROUTE .COMPLEX Qty: 90 1RF Dose Instruction: Take 1 tablet by mouth once daily Rx Instructions: Take 1 tablet by mouth once daily gabapentin 300 mg capsule 300 mg PO HS Qty: 90 0RF Referrals Follow up/Referrals: Joseph Patel MD [Primary Care Provider] - See instructions Activity Restrictions/Add. Instructions Additional Instructions/Restrictions: Keep the wound clean and dry. Watch the wound for signs of infection, such as redness, swelling, drainage, fever. etc. Wear the fingre splint to keep your finger straight for the next couple of days to allow the wound time to start healing. Take tylenol or ibuprofen for pain. Take the antibiotics (cephalexin) and apply the topical antibiotic ointment as directed. Follow up with your regular doctor. GO TO THE ER FOR ANY WORSENING SYMPTOMS OR CONCERNS. Clinical Impressions Clinical Impression: Laceration of left ring finger Print Language Print Language: [place] Citizen Discharge ED Provider: Shayne Mckinney [facility] General Stated complaint: AO 01/28/24 laceration left middle,ring fingers Time Seen by Provider: 01/31/24 16:46 History of Present Illness Provider Complaint: He states that 2 days ago he was using a dremel tool when he slipped and cut the back of his left ring finger and the palm side of his left middle finger. He states that he put crazy glue on it himself at that time and did not seek treatment. Since then the cut on his ring finger has continued to ooze blood at times. He has put more crazy glue on the cut but it has not helped it. His tetanus immunization is up to date. Related Data Previous Rx's ?Medication ?Instructions ?Recorded amlodipine 5 mg tablet 5 mg PO DAILY #90 tabs 11/01/23 lisinopril 20 mg tablet See Rx Instructions .Route 11/01/23 .COMPLEX #90 tabs gabapentin 300 mg capsule 300 mg PO HS #90 caps 01/25/24 cephalexin 500 mg capsule 500 mg PO QID 10 days #40 caps 01/31/24 mupirocin 2 % topical ointment 1 applic topical TID 7 days #15 01/31/24 grams Allergies Allergy/AdvReac Type Severity Reaction Status Date / Time No Known Allergies Allergy Verified 01/02/24 15:56 [facility] Disclaimer: The information contained in this section may have been updated after the patient was seen, as this information can be updated by other users. Medical History (Updated 01/31/24 @ 17:24 by Shayne Mckinney APRN) Fatigue Kidney calculi Social History Smoking Status: Never smoker alcohol intake: never counseling provided: none current occupational status: employed Travel in the last 8 weeks: None ROS Obtained: Yes All systems reviewed & no additional complaints except as documented Constitutional Constitutional: Denies chills and Denies fever(s) Eyes Eyes: Denies eye discharge ENT Ears, Nose, Mouth, and Throat: Denies dizziness, Denies otalgia and Denies sore throat Cardiovascular Cardiovascular: Denies chest pain Respiratory Respiratory: Denies shortness of breath, Denies chest congestion, Denies cough, Denies stridor and Denies wheezing Gastrointestinal Gastrointestingal: Denies nausea or vomiting Musculoskeletal Musculoskeletal: Reports system reviewed and no additional complaints, except as documented and Denies arthralgias Integumentary/Breasts Skin/Breast: Reports as per HPI Neurologic Neurologic: Denies dizziness and Denies paresthesias Allergic/Immunologic Allergic/Immunologic: Denies wheezing Physical Exam General General appearance: alert and in no apparent distress Head Head exam: atraumatic, normocephalic and normal inspection Eye Eye exam: Present normal appearance, PERRL and EOMI ENT ENT exam: Present normal exam, normal oropharynx, mucous membranes moist, TM's normal bilaterally and normal external ear exam Neck Neck exam: Present normal inspection, full ROM and trachea midline; Absent meningismus or lymphadenopathy Chest Chest inspection: Present normal inspection and symmetric chest wall rise; Absent tenderness Respiratory Respiratory exam: Present normal lung sounds bilaterally; Absent respiratory distress Cardiovascular Cardiovascular exam: Present regular rate and normal rhythm; Absent JVD Abdominal Exam Abdominal exam: Present soft and normal bowel sounds; Absent distention, tenderness or guarding Extremities Exam Extremities exam: Present normal capillary refill; Absent calf tenderness Expanded Upper Extremity Exam Left: Hand exam: Present full ROM, tenderness and laceration; Absent swelling, abrasion, skin avulsion, ecchymosis, deformity, crepitus, dislocation, erythema, amputation, nail avulsion or subungual hematoma Neuromotor exam: Normal wrist extension, thumb opposition, thumb IP flexion, thumb adduction and fingers 2-5 abduction Neurosensory exam: Normal radial nerve, ulnar nerve and median nerve Vascular exam: Normal capillary refill, radial pulse and ulnar pulse Back Exam Back exam: Present normal inspection; Absent tenderness Neurological Exam Neurological exam: Present alert and oriented X3 Psychiatric Psychiatric exam: Present normal affect and normal mood Skin Skin exam: Present other (there is a superficial laceration on the palmar side of left middle finger.there is a laceration on the dorsal surface of his left ring finger.That laceration has large amnt of dried glue over it.no foreign body noted,no active bleeding. He has good 2 point touch discrimination distal to the wounds.) Lymphatic Lymphatic Findings: no adenopathy Medical Decision Making Medical Records Medical records reviewed: No I reviewed the patient's medical records. Screening: Per USPSTF and CDC recommendations, given the prevalence of disease in our region, it is our hospital?s policy to screen for HIV and viral Hepatitis for all patients aged 18 and over and those with ongoing risk factors. [place] Inquiry Pt receiving controlled substance: No
[2024-01-31 17:27] VITALS: BP 137/81; PULSE 69; RESP 20; TEMP 36.6; O2SAT 99
--- NOTE | 2024-01-31 17:35 | PC.NURSE ---
DRY, NON-STICK DRESSING AND ALUMINUM FINGER SPLINT APPLIED TO PATIENT'S LEFT RING FINGER AT THIS TIME
== END 2024-01-31 17:37 | disposition home or self-care (01) ==
PROVIDERS: Emergency Provider Nurse Practitioner Family; PCP Internal Medicine
DX: S61.213A Laceration without foreign body of left middle finger without damage to nail, initial encounter (principal); W26.8XXA Contact with other sharp object(s), not elsewhere classified, initial encounter
CPT/HCPCS: 99213; G0381

== ENCOUNTER 2024-03-07 16:54 | Outpatient (CLI) | payer BC, SELFPAY ==
[2024-03-07 17:33] LABS: Basophils % 0.8 % (0.1-2.0); Eosinophils # 0.2 K/mm3 (0.0-0.4); Eosinophils % 3.6 % (0.1-12.0); Hemoglobin 13.1 g/dL (14.1-18.0); Lymphocytes # 1.3 K/mm3 (0.7-4.5); Lymphocytes % 28.4 % (10-50); Mean Corpuscular HGB Conc 32.6 g/dL (31.8-35.4); Mean Corpuscular Hemoglobin 27.1 pg (27.0-31.2); Mean Platelet Volume 7.9 fl (7.4-10.4); Monocytes # 0.3 K/mm3 (0.1-1.0); Monocytes % 6.6 % (1.7-9.3); Neutrophils # 2.7 K/mm3 (1.8-7.8); Neutrophils % 60.5 % (37.0-80.0); Platelet Count 261 K/mm3 (142-424); Red Blood Count 4.82 M/mm3 (4.60-6.20); Red Cell Distribution Width 16.2 % (11.5-17.5); White Blood Count 4.4 K/mm3 (4.8-10.8)
[2024-03-07 18:01] LABS: Alanine Aminotransferase 26 U/L (12-78); Albumin Level 4.4 g/dl (3.5-5.0); Albumin/Globulin Ratio 2.3 (1.1-1.8); Alkaline Phosphatase 86 U/L (38-126); Anion Gap 12.3 mEq/L (5-15); Aspartate Amino Transferase 32 U/L (17-59); Bilirubin,Total 0.6 mg/dl (0.2-1.3); Blood Urea Nitrogen 15 mg/dl (9-20); Calcium 9.3 mg/dl (8.4-10.2); Carbon Dioxide 25 mmol/L (22.0-30.0); Chloride 107 mmol/L (98-107); Chol/HDL Ratio 2.6 (1-3.5); Cholesterol 121 mg/dl (140-200); Estimated Glomerular Filt Rate 100 ml/min (>60); GFR (African American) 121 ML/MIN (>60); Globulin 1.9 g/dL (1.3-3.2); Glucose 83 mg/dl (74-100); HDL Cholesterol 47 mg/dl (40-60); Potassium 4.3 mmoL/L (3.5-5.1); Sodium 140 mmol/L (136-145); Total Protein,Serum 6.3 g/dl (6.3-8.2); Triglycerides 66 mg/dl (30-150); VLDL Cholesterol 13 mg/dL (0-40)
[2024-03-07 18:12] LABS: Direct LDL Cholesterol 64.21 mg/dL (100-129)
== END 2024-03-07 23:59 | disposition home or self-care (01) ==
LOC: RT 16:55
PROVIDERS: PCP Internal Medicine; Visit Provider Internal Medicine
DX: R55 Syncope and collapse (principal); I10 Essential (primary) hypertension; E78.5 Hyperlipidemia, unspecified
CPT/HCPCS: 80053; 80061; 85025; 93225; 93227

== ENCOUNTER 2024-03-12 14:50 | Outpatient (CLI) | payer BC, SELFPAY ==
--- NOTE | 2024-03-12 14:59 | CA_ITS ---
APPROVED REPORT EXAM: Comprehensive 2D, Doppler, and color-flow Echocardiogram Sales Broker: Jennifer Celestin CRT Ht: 6 ft 1 in Wt: 252lbs BSA: 2.37 BP: 116/86 mmHg Indications: Syncope, Hyperlipidemia, Hypertension/HDD M-Mode Dimensions RVDd 2.60 cm (0.9-2.6) LA Diam 3.93 cm (1.9-4.0) LVDd 5.16 cm (3.5-5.7) LVDs 2.71 cm (3.5-5.7) IVSd 1.35 cm (0.6-1.1) PWd 0.96 cm (0.6-1.1) EF (Teich) 78.50% FS 47.50% EDV (Teich) 127.20 mL TAPSE 1.87 (<1.7) ESV (Teich) 27.30 mL LV Diastology E Decel Time 150 (160-240 msec) E/A Ratio 1.21 MED A' 10.10 cm/s LAT A' 10.90 cm/s Aortic Valve AI PHT 640.00 ms AO Peak GR. 5.30 mmHg Mitral Valve MV A Velocity 67.0 (40-130 cm/s) E/A Ratio 1.21 Pulmonary Valve PV Peak Velocity 159.0 (50-150 cm/s) Tricuspid Valve TR P. Velocity 213.00 cm/s RAP Estimate 10.00 mmHg RVSP 28.20 mmHg Left Ventricle The left ventricle is normal size. The left ventricular systolic function is normal. The left ventricular ejection fraction is within the normal range. There is increased overall thickness. There is normal LV segmental wall motion. The left ventricular diastolic function is normal. LVEF is 55%. Right Ventricle The right ventricle is mildly dilated. The right ventricular systolic function is normal. Atria The left atrium is mildly dilated. The right atrium is mildly dilated. Aortic Valve The aortic valve is normal in structure. There is no aortic valvular stenosis. Mild aortic regurgitation. Mitral Valve The mitral valve is normal in structure. No evidence of mitral valve stenosis. Mild mitral regurgitation. Tricuspid Valve Tricuspid valve is grossly normal in structure and function. Mild tricuspid regurgitation. RVSP is 20-25 mmHg. Pulmonic Valve The pulmonary valve is normal in structure. Mild pulmonic regurgitation. Great Vessels The aortic root is normal in size. The ascending aorta is normal in size. IVC is normal in size and collapses >50% with inspiration. Pericardium There is no pericardial effusion. Other Information Study Quality: Fair Conclusion Normal biventricular systolic function. Mild RV dilation. Mild biatrial dilation. Mild AI, mild MR, mild TR, mild PI. Electronically signed by : Kylie Eastman MD 03/25/2024 22:50:19
== END 2024-03-12 23:59 | disposition home or self-care (01) ==
PROVIDERS: PCP Internal Medicine; Visit Provider Internal Medicine
DX: I51.7 Cardiomegaly (principal); I34.0 Nonrheumatic mitral (valve) insufficiency; I36.1 Nonrheumatic tricuspid (valve) insufficiency; R55 Syncope and collapse
CPT/HCPCS: 93306

== ENCOUNTER 2024-04-20 08:58 | Observation (INO) | payer BC, SELFPAY ==
[2024-04-20] VITALS (19 sets, daily range): BP systolic 106–152; BP diastolic 72–90; PULSE 74–102; RESP 11–22; TEMP 36.8–37.1; O2SAT 96–100; BMI 30.6; BMI 28.0
--- NOTE | 2024-04-20 09:16 | ED_ITS ---
Discharge Plan Disposition Patient Disposition: Admitted Prescriptions Prescriptions: No Action amlodipine 5 mg tablet 5 mg PO DAILY Qty: 90 1RF lisinopril 20 mg tablet See Rx Instructions .ROUTE .COMPLEX Qty: 90 1RF Dose Instruction: Take 1 tablet by mouth once daily Rx Instructions: Take 1 tablet by mouth once daily temazepam 15 mg capsule 15 mg PO HS PRN (Reason: sleep) Qty: 30 0RF Zepbound 10 mg/0.5 mL pen injector 10 mg SQ WEEKLY Qty: 2.5 2RF gabapentin 300 mg capsule 300 mg PO HS Qty: 90 0RF Referrals Follow up/Referrals: Joseph Patel MD [Primary Care Provider] - See instructions Clinical Impressions Clinical Impression: Nausea vomiting and diarrhea, SACHIN (acute kidney injury), Hypokalemia, Dehydration, moderate, Colitis, Campylobacter diarrhea, Infection, salmonella, Diarrhea due to cryptosporidium Instructions Patient Instructions: DI for Diarrhea and Traveler's Diarrhea -- Adult, DI for Diarrhea and Traveler's Diarrhea -- Child, DI for Nausea -- Adult, DI for Nausea -- Child Print Language Print Language: Burkinan Discharge ED Provider: Courtney Barrientos General Adult HPI General Chief complaint: Nausea/Vomiting/Diarrhea Stated complaint: nausea, diarrhea x7 days Time Seen by Provider: 04/20/24 09:06 Mode of Arrival: Ambulatory Source of Information: Patient Limitations: No Limitations Description of Symptoms (Recalled from ER Triage Doc. by RN): Pt. presents to the ED with complaints of nausea, vomiting, diarrhea, and abdominal cramping since Tuesday evening. He states he has had intermittent fevers. He does have a history of gastric bypass surgery in 2004. History of Present Illness HPI narrative: Patient is a 59-year-old male with a history of Dayana-en-Y gastric bypass in 2004 also history of numerous kidney stones presents today with 7 days of ongoing and worsening nausea vomiting diarrhea and profound weakness. He also states has had significant decrease in his urine output over the last several days. States that he kept believing that this was going to pass however he continues to have symptoms. Denies any blood in his stool however he did have a fever from a subjective standpoint this was not objectively measured last Tuesday. Denies any significant abdominal pain but has had some mild abdominal discomfort. Related Data Previous Rx's ?Medication ?Instructions ?Recorded amlodipine 5 mg tablet 5 mg PO DAILY #90 tabs 11/01/23 lisinopril 20 mg tablet See Rx Instructions .Route 11/01/23 .COMPLEX #90 tabs temazepam 15 mg capsule 15 mg PO HS PRN sleep #30 caps 04/03/24 tirzepatide (weight loss) 10 10 mg (0.5 mL) SQ WEEKLY #2.5 mL 04/06/24 mg/0.5 mL subcutaneous pen injector (Zepbound) gabapentin 300 mg capsule 300 mg PO HS #90 caps 04/19/24 Allergies Allergy/AdvReac Type Severity Reaction Status Date / Time No Known Allergies Allergy Verified 03/07/24 16:06 [facility] Disclaimer: The information contained in this section may have been updated after the patient was seen, as this information can be updated by other users. Medical History (Updated 04/20/24 @ 12:33 by Courtney Barrientos MD) Restless leg syndrome Hypertension Fatigue Kidney calculi Surgical History (Updated 04/20/24 @ 09:06 by Radha Wilson RN) History of appendectomy History of Dayana-en-Y gastric bypass Social History (Updated 04/20/24 @ 09:07 by Radha Wilson RN) Smoking Status: Never smoker alcohol intake: never counseling provided: none current occupational status: employed Travel in the last 8 weeks: None Have you lived/traveled outside US in past 30 days?: No Contact w/someone who lives/traveled outside US past 30 days?: No Exposure to someone with infectious disease in past 14 days?: No Do you have a fever (greater than 100.4 F or 38 C)?: No Have you tested positive for COVID-19: No Exposed to someone with COVID-19 in past 14 days?: No Do you have a sore throat?: No Do you have a cough?: No Do you have any weakness?: Yes Do you have any diarrhea?: Yes Are you experiencing any unusual bleeding?: No Do you have any muscle aches/pain?: No Do you have any abdominal pain?: No Are you experiencing loss of taste or smell?: No Other Medical History Have you received the Flu Vaccine for this season: Yes Have you received the Pneumonia Vaccine: Yes ROS Obtained: Yes All systems reviewed & no additional complaints except as documented Physical Exam General General appearance: alert and in no apparent distress Respiratory Respiratory exam: Present normal lung sounds bilaterally Cardiovascular Cardiovascular exam: Present regular rate and normal rhythm Abdominal Exam Abdominal exam: Present soft; Absent distention or tenderness Neurological Exam Neurological exam: Present alert and oriented X3 Medical Decision Making Medical Records Screening: Per USPSTF and CDC recommendations, given the prevalence of disease in our region, it is our hospital?s policy to screen for HIV and viral Hepatitis for all patients aged 18 and over and those with ongoing risk factors. [place] Inquiry Pt receiving controlled substance: No Vital Signs: 04/20/24 09:04 04/20/24 09:08 04/20/24 09:39 Temperature 98.2 F Temperature Source Oral Pulse Rate 100 H 89 Pulse Rate [Right Brachial] 102 H Respiratory Rate 22 Blood Pressure 117/78 123/77 Blood Pressure [Right Arm] 137/88 Blood Pressure Mean [Right Arm] 104 Blood Pressure Source [Right Arm] Automatic Cuff Blood Pressure Position [Right Arm] Sitting 02 Sat by Pulse Oximetry 99 99 99 Oxygen Delivery Method Room Air Room Air Room Air 04/20/24 10:00 04/20/24 10:30 Temperature Temperature Source Pulse Rate 84 85 Pulse Rate [Right Brachial] Respiratory Rate Blood Pressure 126/80 119/72 Blood Pressure [Right Arm] Blood Pressure Mean [Right Arm] Blood Pressure Source [Right Arm] Blood Pressure Position [Right Arm] 02 Sat by Pulse Oximetry 100 100 Oxygen Delivery Method Room Air Room Air Lab Data Lab results reviewed: Yes I reviewed the patient's lab results. Lab Results 04/20/24 09:20: Stl Aeromonas (PCR) Not detected, Stl C. cayetanensis PCR Not detected, Stool Rotavirus (PCR) Not detected, Stl Adenov F 40/41 PCR Not detected, Stool Astrovirus (PCR) Not detected, Stool Campylobacter PCR Detected A, Stl C.difficile Tox PCR Not detected, Stool Cryptosporidium PCR Detected A, Stl E.coli Shiga Tox PCR Not detected, Stool E coli O157 PCR Not detected, Stl Enterotoxigenic E PCR Not detected, Stool EPEC (PCR) Not detected, Stool EAEC (PCR) Not detected, Stl E. histolytica PCR Not detected, Stool Giardia Lamblia PCR Not detected, Stool Salmonella PCR Detected A, Stool Sapovirus (PCR) Not detected, Stl P. shigelloides PCR Not detected, Stl Shigella/EIEC PCR Not detected, St Y.enterocolitica PCR Not detected, Stool Vibrio (PCR) Not detected, Stl Vibrio cholerae PCR Not detected, Stl Norovirus GI/GII PCR Not detected 04/20/24 09:24: WBC 5.9, RBC 5.69, Hgb 14.5, Hct 45.3, MCV 79.6 L, MCH 25.5 L, MCHC 32.0, RDW 15.9, Plt Count 314, MPV 10.2, Neut % (Auto) 66.2, Lymph % (Auto) 13.7, [place] % (Auto) 18.1 H, Eos % (Auto) 0.3, Baso % (Auto) 1.4, Neut # (Auto) 3.9, Lymph # (Auto) 0.8, [place] # (Auto) 1.1 H, Eos # (Auto) 0.0, Baso # (Auto) 0.1, Sodium 136, Potassium 3.2 L, Chloride 100, Carbon Dioxide 22, Anion Gap 17.2 H, BUN 29 H, Creatinine 1.30 H, Estimated Creat Clear 93, Estimated GFR 57 L, Est GFR ( Amer) 69, Glucose 108 H, Lactate 1.7, Calcium 9.4, Total Bilirubin 0.8, AST 27, ALT 26, Alkaline Phosphatase 88, Troponin I < 0.01, Total Protein 7.0, Albumin 4.0, Globulin 3.0, Albumin/Globulin Ratio 1.3, Lipase 69, HIV Ag/Ab Combo Qual Negative 04/20/24 09:25: SARS-CoV-2 (PCR) Not detected, Influenza A Untype (PCR) Not detected, Influenza Type B (PCR) Not detected 04/20/24 09:24 04/20/24 09:24 Orders (Tests/Meds): ED MEDICATIONS Discontinued Medications Generic Name Dose Route Start Last Admin Trade Name Freq PRN Reason Stop Dose Admin Hydromorphone HCl 0.5 mg 04/20/24 09:56 04/20/24 10:03 Hydromorphone 2mg/Ml Syringe IV 04/20/24 09:57 0.5 mg ONCE ONE Administration Sodium Chloride 1,000 mls @ 999 mls/hr 04/20/24 09:15 04/20/24 09:34 Sod Chlor 0.9% 1000ml Bag IV 04/20/24 10:15 999 mls/hr .Q1H1M JEANINE Administration Potassium Chloride/Water 100 mls @ 100 mls/hr 04/20/24 10:03 04/20/24 11:26 Potassium Chloride 10meq/100ml Ivpb IV 04/20/24 12:02 100 mls/hr Q1H JEANINE Administration Iopamidol 75 ml 04/20/24 10:51 04/20/24 10:52 Iopamidol-370 (76%);100ml Bottle IV 04/20/24 10:52 75 ml ONCE ONE Administration Morphine Sulfate 4 mg 04/20/24 09:13 04/20/24 09:34 Morphine 4mg/Ml Syringe IV 04/20/24 09:14 4 mg ONCE ONE Administration Ondansetron HCl 4 mg 04/20/24 09:13 04/20/24 09:34 Ondansetron 4mg/2ml Vial IV 04/20/24 09:14 4 mg ONCE ONE Administration Potassium Chloride 40 meq 04/20/24 10:03 04/20/24 10:16 Potassium Chloride 20meq/15ml Udc PO 04/20/24 10:04 40 meq ONCE ONE Administration Sodium Chloride 10 ml 04/20/24 10:51 04/20/24 10:52 Sodium Chloride 0.9% 10ml Syr (Rad Only) IV 04/20/24 10:52 10 ml ONCE ONE Administration ORDERS Category Date Time Status CT abdomen pelvis w con Stat Cat Scan 04/20/24 09:56 Completed CBC w/Auto Diff [Complete Blood Count Auto Diff] Stat Lab 04/20/24 09:24 Completed CMP [Comprehensive Metabolic Panel] Stat Lab 04/20/24 09:24 Completed Diarrhea 23 Panel, PCR Stat Lab 04/20/24 09:20 Completed HIV Combo Stat Lab 04/20/24 09:24 Completed Hep C Ab with Reflex to RNA Stat Lab 04/20/24 09:24 Received Lactic Acid Stat Lab 04/20/24 09:24 Completed Lipase Stat Lab 04/20/24 09:24 Completed Rapid PCR Covid and Flu A/B Stat Lab 04/20/24 09:25 Completed Trop I [Troponin I] Stat Lab 04/20/24 09:24 Completed Troponin I Q3H Lab 04/20/24 12:15 Ordered Troponin I Q3H Lab 04/20/24 15:15 Ordered Medical Decision Narrative: 59-year-old with protracted illness with associated nausea vomiting diarrhea. Given the duration I am concerned about invasive bacterial species we will get a diarrhea PCR panel. Also will swab him for COVID and flu. Viral etiology certainly in the differential as well with this. His abdominal exam is benign from he would not get a CT scan at the moment. My main concern right now is his hydration status and his renal function given the fact that he states he has had profound diarrhea with decreased urine output. IV fluids and basic blood work have been initiated will reassess. Reassessment 956 patient now stating he is having refractory and severe abdominal pain in the lower region we will escalate workup with a CT with contrast of the abdomen pelvis and administer Dilaudid and reassess. CT scan was performed which I personally interpreted which shows diffuse colitis. Serial abdominal exams are benign however do not believe patient is surgical pathology. Labs show acute kidney injury hypokalemia patient's GI PCR panel is positive for Campylobacter Salmonella and Cryptosporidium. Patient will be admitted for IV fluid hydration and likely antibiotics particular for the Salmonella. He is agreeable to this plan I discussed with hospital medicine patient was admitted in stable condition peer Critical Care Critical Care Time Critical Care Time: No
[2024-04-20 09:27] LABS: Adenovirus F 40/41, stool Not Detected (NotDetected); Astrovirus Not Detected (NotDetected); Clostridium Difficile A/B, PCR Not Detected (NotDetected); Cyclospora Cayetanesis Not Detected (NotDetected); Entamoeba histolytica Not Detected (NotDetected); Enteroaggregative E coli Not Detected (NotDetected); Enteropathogenic E coli Not Detected (NotDetected); Enterotoxigenic E coli Not Detected (NotDetected); Giardia lamblia Not Detected (NotDetected); Norovirus Not Detected (NotDetected); Plesimonas Shigalloides, PCR Not Detected (NotDetected); Rotavirus A Not Detected (NotDetected); Sapovirus Not Detected (NotDetected); Shiga-like toxin E coli Not Detected (NotDetected); Shigella Enterovasive E coli Not Detected (NotDetected); Vibrio Cholerae Not Detected (NotDetected); Vibrio, PCR Not Detected (NotDetected); Yersinia Entercolitica, PCR Not Detected (NotDetected)
[2024-04-20 09:31] LABS: Coronavirus 19, PCR Not Detected (NotDetected); Influenza A, PCR Not Detected (NotDetected); Influenza B, PCR Not Detected (NotDetected)
--- NOTE | 2024-04-20 09:33 | ECG_ITS ---
APPROVED REPORT Exam: Resting ECG HR:92 bpm ECG Measurements Heart Rate 92 AXES RI 108 P 50 QRSd 105 QRS -40 QT 356 T 75 QTc 405 Conclusion SINUS RHYTHM WITH SHORT RI INTERVAL LEFT AXIS DEVIATION [QRS AXIS < -30] NONSPECIFIC T-WAVE ABNORMALITY ABNORMAL ECG UNCONFIRMED REPORT Electronically signed by : Shayne Barrientos, 04/20/2024 16:02:24
[2024-04-20 09:34] LABS: Basophils # 0.1 K/mm3 (0-0.2); Basophils % 1.4 % (0.1-2.0); Eosinophils % 0.3 % (0.1-12.0); Hematocrit 45.3 % (42.0-52.0); Hemoglobin 14.5 g/dL (14.1-18.0); Lymphocytes # 0.8 K/mm3 (0.7-4.5); Lymphocytes % 13.7 % (10-50); Mean Corpuscular Hemoglobin 25.5 pg (27.0-31.2); Mean Corpuscular Volume 79.6 fl (80-94); Mean Platelet Volume 10.2 fl (7.4-10.4); Monocytes # 1.1 K/mm3 (0.1-1.0); Monocytes % 18.1 % (1.7-9.3); Neutrophils # 3.9 K/mm3 (1.8-7.8); Neutrophils % 66.2 % (37.0-80.0); Platelet Count 314 K/mm3 (142-424); Red Blood Count 5.69 M/mm3 (4.60-6.20); Red Cell Distribution Width 15.9 % (11.5-17.5); White Blood Count 5.9 K/mm3 (4.8-10.8)
[2024-04-20] MEDS: MORPHINE 4MG/ML SYRINGE 4 MG IV (09:34)
[2024-04-20] MEDS: 0.9 % SODIUM CHLORIDE 1000ML 1,000 ML 999 ML IV (09:34)
[2024-04-20] MEDS: ONDANSETRON 4MG/2ML VIAL 4 MG IV ×2 (09:34→18:15)
[2024-04-20 09:42] LABS: Chloride 100 mmol/L (98-107); Sodium 136 mmol/L (136-145)
[2024-04-20 09:43] LABS: Potassium 3.2 mmoL/L (3.5-5.1)
[2024-04-20 09:45] LABS: Alanine Aminotransferase 26 U/L (12-78); Albumin/Globulin Ratio 1.3 (1.1-1.8); Anion Gap 17.2 mEq/L (5-15); Aspartate Amino Transferase 27 U/L (17-59); Blood Urea Nitrogen 29 mg/dl (9-20); Carbon Dioxide 22 mmol/L (22.0-30.0); Creatinine Clearance Estimated 93 mL/min (50-200); Estimated Glomerular Filt Rate 57 ml/min (>60); GFR (African American) 69 ML/MIN (>60); Lactic Acid 1.7 mmol/L (0.7-2.1)
[2024-04-20 09:46] LABS: Alkaline Phosphatase 88 U/L (38-126); Bilirubin,Total 0.8 mg/dl (0.2-1.3); Calcium 9.4 mg/dl (8.4-10.2); Glucose 108 mg/dl (74-100)
--- NOTE | 2024-04-20 09:56 | CT_ITS ---
FINAL REPORT TECHNIQUE: Thin section axial images were obtained through the abdomen after intravenous contrast. Reconstruction images were obtained from the axial data. Exam was performed using dose reduction techniques. CLINICAL HISTORY: lower abd pain COMPARISON: 11/08/2023 FINDINGS: The lung bases are clear. The liver is homogeneous. The gallbladder is absent. The spleen, adrenal glands, and pancreas are unremarkable. There are bilateral nonobstructing renal stones. No obstructing renal or ureteral stone is seen. There is no hydronephrosis. There is no evidence of small bowel obstruction. There are changes from gastric bypass. There is long segment colonic wall thickening consistent with colitis which is favored to be infectious or inflammatory. The appendix is not visualized but there are no secondary signs of appendicitis. Multiple mildly enlarged mesenteric lymph nodes are likely reactive. There is no ascites. No acute osseous abnormalities identified. IMPRESSION: Diffuse colitis, favor infectious or inflammatory etiology. Bilateral nonobstructing renal stones. Reviewed, Interpreted and Dictated by Janie Fonseca MD Transcribed by Kait Pandya Authenticated and [facility]
[2024-04-20 09:58] LABS: Troponin I < 0.01 ng/ml (0.00-0.034)
[2024-04-20] MEDS: HYDROMORPHONE 2MG/ML SYRINGE 0.5 MG IV (10:03)
[2024-04-20] MEDS: KCl 10mEq/100ml 100 ML 100 MEQ IV ×2 (10:15→11:26)
[2024-04-20] MEDS: POTASSIUM CHLORIDE 20MEQ/15ML UDC 40 MEQ PO (10:16)
[2024-04-20 10:35] LABS: Lipase 69 U/L (23-300)
[2024-04-20] MEDS: SODIUM CHLORIDE 0.9% 10ML SYR (RAD ONLY) 10 ML IV (10:52)
[2024-04-20] MEDS: IOPAMIDOL-370 (76%);100ML BOTTLE 75 ML IV (10:52)
[2024-04-20 11:09] LABS: HIV Combo NEGATIVE (Negative)
[2024-04-20 12:24] LABS: Campylobacter Detected (NotDetected)
[2024-04-20 12:25] LABS: Cryptosporidium Detected (NotDetected); Salmonella, PCR Detected (NotDetected)
--- NOTE | 2024-04-20 13:11 | HMH.PHAINT1 ---
Pharmacy Intervention Comments: Home medication list verified using list from outpatient pharmacy
[2024-04-20 13:59] LABS: Troponin I < 0.01 ng/ml (0.00-0.034)
[2024-04-20 15:48] LABS: Troponin I < 0.01 ng/ml (0.00-0.034)
[2024-04-20] MEDS: 0.9 % SODIUM CHLORIDE 1000ML 1,000 ML 10 ML IV (16:19)
--- NOTE | 2024-04-20 16:39 | EXP.HP ---
History of Present Illness *Admission Date: 04/20/24 *Reason for visit:: Intractable nausea/vomiting/diarrhea *History of present illness: Amos Kevin is a 59-year-old male with a medical history significant for hypertension who presents for intractable nausea/vomiting/diarrhea for the past week. He states it has not gotten better, no known recent sick contacts or travel history. Initially had a fever subsided. Has been having abdominal pain from throwing up. CT abdomen/pelvis in the ED showed diffuse colitis and bilateral nonobstructing renal stones. Case discussed with ED provider decision was made to admit patient for intractable nausea/vomiting/diarrhea, SAHCIN, dehydration. [facility] Disclaimer: The information contained in this section may have been updated after the patient was seen, as this information can be updated by other users. Medical History Restless leg syndrome Hypertension Fatigue Kidney calculi Surgical History History of appendectomy History of Dayana-en-Y gastric bypass Family History (Updated 04/20/24 @ 14:20 by Kacey Garzon RN) Other Family history of hypertension Prostate cancer Social History (Updated 04/20/24 @ 09:07 by Radha Wilson RN) Smoking Status: Never smoker alcohol intake: never counseling provided: none current occupational status: employed Travel in the last 8 weeks: None Have you lived/traveled outside US in past 30 days?: No Contact w/someone who lives/traveled outside US past 30 days?: No Exposure to someone with infectious disease in past 14 days?: No Do you have a fever (greater than 100.4 F or 38 C)?: No Have you tested positive for COVID-19: No Exposed to someone with COVID-19 in past 14 days?: No Do you have a sore throat?: No Do you have a cough?: No Do you have any weakness?: Yes Do you have any diarrhea?: Yes Are you experiencing any unusual bleeding?: No Do you have any muscle aches/pain?: No Do you have any abdominal pain?: No Are you experiencing loss of taste or smell?: No Other Medical History Have you received the Flu Vaccine for this season: No Have you received the Pneumonia Vaccine: Yes Meds Home Medications and Allergies Home Medications ?Medication ?Instructions ?Recorded ?Confirmed ?Type amlodipine 5 mg tablet 5 mg PO DAILY #90 tabs 11/01/23 04/20/24 Rx temazepam 15 mg capsule 15 mg PO HS PRN sleep #30 caps 04/03/24 04/20/24 Rx tirzepatide (weight loss) 10 10 mg (0.5 mL) SQ WEEKLY #2.5 mL 04/06/24 04/20/24 Rx mg/0.5 mL subcutaneous pen injector (Zepbound) gabapentin 300 mg capsule 300 mg PO HS #90 caps 04/19/24 04/20/24 Rx lisinopril 20 mg tablet 20 mg PO DAILY 04/20/24 04/20/24 History New Prescriptions to Start Prescriptions: Allergies Allergy/AdvReac Type Severity Reaction Status Date / Time No Known Allergies Allergy Verified 04/20/24 14:08 Exam Data for Last 24 hours Vital signs and Labs for Last 24 Hours: Temp Pulse Resp BP Pulse Ox O2 Del Method 98.8 F 86 17 134/89 100 Room Air 04/20/24 13:46 04/20/24 13:46 04/20/24 13:46 04/20/24 13:46 04/20/24 13:46 04/20/24 16:33 Laboratory Results - last 24 hr 04/20/24 09:20: Stl Aeromonas (PCR) Not detected, Stl C. cayetanensis PCR Not detected, Stool Rotavirus (PCR) Not detected, Stl Adenov F 40/41 PCR Not detected, Stool Astrovirus (PCR) Not detected, Stool Campylobacter PCR Detected A, Stl C.difficile Tox PCR Not detected, Stool Cryptosporidium PCR Detected A, Stl E.coli Shiga Tox PCR Not detected, Stool E coli O157 PCR Not detected, Stl Enterotoxigenic E PCR Not detected, Stool EPEC (PCR) Not detected, Stool EAEC (PCR) Not detected, Stl E. histolytica PCR Not detected, Stool Giardia Lamblia PCR Not detected, Stool Salmonella PCR Detected A, Stool Sapovirus (PCR) Not detected, Stl P. shigelloides PCR Not detected, Stl Shigella/EIEC PCR Not detected, St Y.enterocolitica PCR Not detected, Stool Vibrio (PCR) Not detected, Stl Vibrio cholerae PCR Not detected, Stl Norovirus GI/GII PCR Not detected 04/20/24 09:24: WBC 5.9, RBC 5.69, Hgb 14.5, Hct 45.3, MCV 79.6 L, MCH 25.5 L, MCHC 32.0, RDW 15.9, Plt Count 314, MPV 10.2, Neut % (Auto) 66.2, Lymph % (Auto) 13.7, [place] % (Auto) 18.1 H, Eos % (Auto) 0.3, Baso % (Auto) 1.4, Neut # (Auto) 3.9, Lymph # (Auto) 0.8, [place] # (Auto) 1.1 H, Eos # (Auto) 0.0, Baso # (Auto) 0.1, Sodium 136, Potassium 3.2 L, Chloride 100, Carbon Dioxide 22, Anion Gap 17.2 H, BUN 29 H, Creatinine 1.30 H, Estimated Creat Clear 93, Estimated GFR 57 L, Est GFR ( Amer) 69, Glucose 108 H, Lactate 1.7, Calcium 9.4, Total Bilirubin 0.8, AST 27, ALT 26, Alkaline Phosphatase 88, Troponin I < 0.01, Total Protein 7.0, Albumin 4.0, Globulin 3.0, Albumin/Globulin Ratio 1.3, Lipase 69, HIV Ag/Ab Combo Qual Negative 04/20/24 09:25: SARS-CoV-2 (PCR) Not detected, Influenza A Untype (PCR) Not detected, Influenza Type B (PCR) Not detected 04/20/24 13:00: Troponin I < 0.01 04/20/24 15:07: Troponin I < 0.01 I & O for Last 24 hours: Intake & Output 04/17/24 04/18/24 04/19/24 04/20/24 23:59 23:59 23:59 23:59 Intake Total 1200 / 1200 Output Total 0 / 0 Balance 1200 / 1200 Weight 96.615 kg Constitutional Constitutional: no acute distress *Routine HEENT Exam Head: Present normocephalic Eye: Present EOMI and PERRL ENT: Present mucous membranes moist *Routine Neck Exam Neck: Present supple; Absent lymphadenopathy *Routine Respiratory Exam Respiratory: Present CTA bilaterally *Routine Cardiovascular Exam Cardiovascular: Present RRR *Routine Abdominal Exam Abdominal: Present soft, normoactive bowel sounds and tenderness Comments: Diffuse abdominal mild tenderness to palpation without peritoneal signs. *Routine Rectal Exam Rectal:: deferred *Routine Genitalia Exam Genitalia:: deferred *Routine Extremities Exam Extremities: Absent cyanosis, clubbing or edema *Routine Skin Exam Skin: Present warm; Absent rash *Routine Neurological Exam Neurological: Present alert and oriented X3 Assessment and Plan *Assessment and plan (1) Diarrhea due to cryptosporidium: Status: Acute Category: Medical Code(s): A07.2 - Cryptosporidiosis (2) Infection, salmonella: Status: Acute Category: Medical Code(s): A02.9 - Salmonella infection, unspecified (3) Campylobacter diarrhea: Status: Acute Category: Medical Code(s): A04.5 - Campylobacter enteritis (4) Colitis: Status: Acute Category: Medical Code(s): K52.9 - Noninfective gastroenteritis and colitis, unspecified (5) Dehydration, moderate: Status: Acute Category: Medical Code(s): E86.0 - Dehydration (6) Hypokalemia: Status: Acute Category: Medical Code(s): E87.6 - Hypokalemia (7) SACHIN (acute kidney injury): Status: Acute Category: Medical Code(s): N17.9 - Acute kidney failure, unspecified (8) Nausea vomiting and diarrhea: Status: Acute Category: Medical Code(s): R11.2 - Nausea with vomiting, unspecified; R19.7 - Diarrhea, unspecified Plan Amos Kevin is a 59-year-old male with a medical history significant for hypertension who presents for intractable nausea/vomiting/diarrhea for the past week. He states it has not gotten better, no known recent sick contacts or travel history. Initially had a fever subsided. Has been having abdominal pain from throwing up. CT abdomen/pelvis in the ED showed diffuse colitis and bilateral nonobstructing renal stones. Case discussed with ED provider decision was made to admit patient for intractable nausea/vomiting/diarrhea, SACHIN, dehydration. #Intractable nausea/vomiting/diarrhea #Diffuse colitis #Stool Campylobacter, Cryptosporidium, Salmonella ? CT abdomen/pelvis, stool PCR revealed above findings. ? Given protracted state of diarrhea and symptoms, we will start antibiotics. ? IV levofloxacin day 1. ? Zofran as needed for nausea. ? IV normal saline at 100 mL/h. ? Avoid antidiarrheals at this time to help eradicate above pathogens. #SACHIN #Hypokalemia ? Creatinine 1.3, baseline around 1.0. ? IV fluids as above. ? Replating potassium. #Hypertension ? Resumed home amlodipine. Holding home lisinopril due to SACHIN. Full code Lovenox 40 mg
[2024-04-20] MEDS: LEVOFLOXACIN/D5W 750 MG/150 ML 750 MG/150 ML PIGGYBACK 100 MG IV (17:38)
[2024-04-20] MEDS: ACETAMINOPHEN 325MG TAB 650 MG PO (18:15)
[2024-04-20] MEDS: GABAPENTIN 300MG CAPSULE 300 MG PO (20:39)
[2024-04-20] MEDS: 0.9 % SODIUM CHLORIDE 1000ML 1,000 ML 100 ML IV (20:41)
[2024-04-20] MEDS: PROCHLORPERAZINE 10MG/2ML VIAL 10 MG IV (22:17)
[2024-04-21] VITALS: BP 121/73; PULSE 78; RESP 16; TEMP 36.4; O2SAT 99
[2024-04-21] MEDS: 0.9 % SODIUM CHLORIDE 1000ML 1,000 ML 100 ML IV (03:42)
[2024-04-21 04:00] VITALS: BP 118/73; PULSE 69; RESP 17; TEMP 36.4; O2SAT 98; BMI 28.0
--- NOTE | 2024-04-21 05:32 | PC.NURSE ---
Pt. is alert and orientated x4. Pt. was having a lot of nausea last night and the Zofran was minimal relief. Pt. had Compazine 10 mg and slept really well. He woke up during the night and states he felt a lot better. Continues with IV fluids. Pt. up to bathroom independentl. VSS, Personal items and call [place] in reach.
[2024-04-21 07:51] LABS: Basophils # 0.1 K/mm3 (0-0.2); Basophils % 1.2 % (0.1-2.0); Eosinophils # 0.1 K/mm3 (0.0-0.4); Eosinophils % 1.2 % (0.1-12.0); Hematocrit 42.6 % (42.0-52.0); Hemoglobin 13.4 g/dL (14.1-18.0); Lymphocytes # 1.4 K/mm3 (0.7-4.5); Lymphocytes % 21.3 % (10-50); Mean Corpuscular HGB Conc 31.5 g/dL (31.8-35.4); Mean Corpuscular Hemoglobin 25.5 pg (27.0-31.2); Mean Corpuscular Volume 81.1 fl (80-94); Mean Platelet Volume 9.8 fl (7.4-10.4); Monocytes # 0.9 K/mm3 (0.1-1.0); Monocytes % 13.4 % (1.7-9.3); Neutrophils # 4.1 K/mm3 (1.8-7.8); Neutrophils % 60.4 % (37.0-80.0); Platelet Count 314 K/mm3 (142-424); Red Blood Count 5.25 M/mm3 (4.60-6.20); White Blood Count 6.7 K/mm3 (4.8-10.8)
[2024-04-21 07:58] VITALS: BP 125/81; PULSE 78; RESP 16; TEMP 36.6; O2SAT 100
[2024-04-21 08:09] LABS: Alanine Aminotransferase 21 U/L (12-78); Albumin Level 3.5 g/dl (3.5-5.0); Albumin/Globulin Ratio 1.3 (1.1-1.8); Alkaline Phosphatase 76 U/L (38-126); Anion Gap 10.7 mEq/L (5-15); Aspartate Amino Transferase 23 U/L (17-59); Bilirubin,Total 0.4 mg/dl (0.2-1.3); Blood Urea Nitrogen 15 mg/dl (9-20); Calcium 8.7 mg/dl (8.4-10.2); Carbon Dioxide 24 mmol/L (22.0-30.0); Chloride 104 mmol/L (98-107); Creatinine Clearance Estimated 110 mL/min (50-200); Estimated Glomerular Filt Rate 77 ml/min (>60); GFR (African American) 93 ML/MIN (>60); Globulin 2.7 g/dL (1.3-3.2); Glucose 88 mg/dl (74-100); Potassium 3.7 mmoL/L (3.5-5.1); Sodium 135 mmol/L (136-145); Total Protein,Serum 6.2 g/dl (6.3-8.2)
[2024-04-21 08:15] LABS: HCV Ab Non Reactive (Non Reactive)
[2024-04-21] MEDS: ENOXAPARIN 40MG/0.4ML SYRINGE 40 MG SUBCUT (08:26)
[2024-04-21] MEDS: AMLODIPINE 5MG TABLET 5 MG PO (08:26)
--- NOTE | 2024-04-21 11:43 | EXP.DC.SUM ---
General Admission date:: 04/20/24 HPI HPI HPI: Amos Kevin is a 59-year-old male with a medical history significant for hypertension who presents for intractable nausea/vomiting/diarrhea for the past week. He states it has not gotten better, no known recent sick contacts or travel history. Initially had a fever subsided. Has been having abdominal pain from throwing up. CT abdomen/pelvis in the ED showed diffuse colitis and bilateral nonobstructing renal stones. Case discussed with ED provider decision was made to admit patient for intractable nausea/vomiting/diarrhea, SACHIN, dehydration. Hospital Course Hospital Course Hospital Course: Amos Kevin is a 59-year-old male with a medical history significant for hypertension who presents for intractable nausea/vomiting/diarrhea for the past week. He states it has not gotten better, no known recent sick contacts or travel history. Initially had a fever subsided. Has been having abdominal pain from throwing up. CT abdomen/pelvis in the ED showed diffuse colitis and bilateral nonobstructing renal stones. Case discussed with ED provider decision was made to admit patient for intractable nausea/vomiting/diarrhea, SACHIN, dehydration. #Intractable nausea/vomiting/diarrhea #Diffuse colitis #Stool Campylobacter, Cryptosporidium, Salmonella ? CT abdomen/pelvis, stool PCR revealed above findings. ? Given protracted state of diarrhea and symptoms, will start antibiotics. ? Clinically improved with Compazine, IV levofloxacin. Diarrhea has also improved. Electrolytes stable, kidney function improved. ? Discharged with ciprofloxacin for 6 more days, Compazine as needed for nausea. ? Avoid antidiarrheals at this time to help eradicate above pathogens. ? Will follow-up with PCP within 1 week. #SACHIN #Hypokalemia ? Initial creatinine 1.3, baseline around 1.0. Potassium currently 3.7, stable. ? Improved back to baseline with IV and oral fluid rehydration. #Hypertension ? Resumed home amlodipine, lisinopril. Exam Data for Last 24 hours Vital signs and Labs for Last 24 Hours: Temp Pulse Resp BP Pulse Ox O2 Del Method 98 F 78 16 125/81 100 Room Air 04/21/24 07:58 04/21/24 07:58 04/21/24 07:58 04/21/24 07:58 04/21/24 07:58 04/21/24 07:58 Laboratory Results - last 24 hr 04/20/24 09:20: Stl Aeromonas (PCR) Not detected, Stl C. cayetanensis PCR Not detected, Stool Rotavirus (PCR) Not detected, Stl Adenov F 40/41 PCR Not detected, Stool Astrovirus (PCR) Not detected, Stool Campylobacter PCR Detected A, Stl C.difficile Tox PCR Not detected, Stool Cryptosporidium PCR Detected A, Stl E.coli Shiga Tox PCR Not detected, Stool E coli O157 PCR Not detected, Stl Enterotoxigenic E PCR Not detected, Stool EPEC (PCR) Not detected, Stool EAEC (PCR) Not detected, Stl E. histolytica PCR Not detected, Stool Giardia Lamblia PCR Not detected, Stool Salmonella PCR Detected A, Stool Sapovirus (PCR) Not detected, Stl P. shigelloides PCR Not detected, Stl Shigella/EIEC PCR Not detected, St Y.enterocolitica PCR Not detected, Stool Vibrio (PCR) Not detected, Stl Vibrio cholerae PCR Not detected, Stl Norovirus GI/GII PCR Not detected 04/20/24 09:24: Hepatitis C Antibody Non reactive 04/20/24 13:00: Troponin I < 0.01 04/20/24 15:07: Troponin I < 0.01 04/21/24 07:25: WBC 6.7, RBC 5.25, Hgb 13.4 L, Hct 42.6, MCV 81.1, MCH 25.5 L, MCHC 31.5 L, RDW 16.0, Plt Count 314, MPV 9.8, Neut % (Auto) 60.4, Lymph % (Auto) 21.3, [place] % (Auto) 13.4 H, Eos % (Auto) 1.2, Baso % (Auto) 1.2, Neut # (Auto) 4.1, Lymph # (Auto) 1.4, [place] # (Auto) 0.9, Eos # (Auto) 0.1, Baso # (Auto) 0.1, Sodium 135 L, Potassium 3.7, Chloride 104, Carbon Dioxide 24, Anion Gap 10.7, BUN 15 D, Creatinine 1.00 D, Estimated Creat Clear 110, Estimated GFR 77, Est GFR ( Amer) 93 D, Glucose 88, Calcium 8.7, Magnesium 2.0, Total Bilirubin 0.4, AST 23, ALT 21, Alkaline Phosphatase 76, Total Protein 6.2 L, Albumin 3.5 D, Globulin 2.7, Albumin/Globulin Ratio 1.3 I & O for Last 24 hours: Intake & Output 04/18/24 04/19/24 04/20/24 04/21/24 23:59 23:59 23:59 23:59 Intake Total 1560 / 2510 1050 / 1050 Output Total 0 / 0 Balance 1560 / 2510 1050 / 1050 Weight 96.615 kg 95.8 kg Constitutional Constitutional: no acute distress *Routine HEENT Exam Head: Present normocephalic Eye: Present EOMI and PERRL ENT: Present mucous membranes moist *Routine Neck Exam Neck: Present supple; Absent lymphadenopathy *Routine Respiratory Exam Respiratory: Present CTA bilaterally *Routine Cardiovascular Exam Cardiovascular: Present RRR *Routine Abdominal Exam Abdominal: Present soft and normoactive bowel sounds; Absent tenderness *Routine Extremities Exam Extremities: Absent cyanosis, clubbing or edema *Routine Skin Exam Skin: Present warm; Absent rash *Routine Neurological Exam Neurological: Present alert and oriented X3 Results Data Completed and Pending Labs on day of discharge: Labs from last 24 hours 04/21/24 04/20/24 04/20/24 07:25 15:07 13:00 WBC 6.7 RBC 5.25 Hgb 13.4 L Hct 42.6 MCV 81.1 MCH 25.5 L MCHC 31.5 L RDW 16.0 Plt Count 314 MPV 9.8 Neut % (Auto) 60.4 Lymph % (Auto) 21.3 [place] % (Auto) 13.4 H Eos % (Auto) 1.2 Baso % (Auto) 1.2 Neut # (Auto) 4.1 Lymph # (Auto) 1.4 [place] # (Auto) 0.9 Eos # (Auto) 0.1 Baso # (Auto) 0.1 Sodium 135 L Potassium 3.7 Chloride 104 Carbon Dioxide 24 Anion Gap 10.7 BUN 15 D Creatinine 1.00 D Estimated Creat Clear 110 Estimated GFR 77 Est GFR ( Amer) 93 D Glucose 88 Calcium 8.7 Magnesium 2.0 Total Bilirubin 0.4 AST 23 ALT 21 Alkaline Phosphatase 76 Troponin I < 0.01 < 0.01 Total Protein 6.2 L Albumin 3.5 D Globulin 2.7 Albumin/Globulin Ratio 1.3 Stl Aeromonas (PCR) Stl C. cayetanensis PCR Stool Rotavirus (PCR) Stl Adenov F 40/41 PCR Stool Astrovirus (PCR) Stool Campylobacter PCR Stl C.difficile Tox PCR Stool Cryptosporidium PCR Stl E.coli Shiga Tox PCR Stool E coli O157 PCR Stl Enterotoxigenic E PCR Stool EPEC (PCR) Stool EAEC (PCR) Stl E. histolytica PCR Stool Giardia Lamblia PCR Stool Salmonella PCR Stool Sapovirus (PCR) Stl P. shigelloides PCR Stl Shigella/EIEC PCR St Y.enterocolitica PCR Stool Vibrio (PCR) Stl Vibrio cholerae PCR Stl Norovirus GI/GII PCR Hepatitis C Antibody 04/20/24 04/20/24 09:24 09:20 WBC RBC Hgb Hct MCV MCH MCHC RDW Plt Count MPV Neut % (Auto) Lymph % (Auto) [place] % (Auto) Eos % (Auto) Baso % (Auto) Neut # (Auto) Lymph # (Auto) [place] # (Auto) Eos # (Auto) Baso # (Auto) Sodium Potassium Chloride Carbon Dioxide Anion Gap BUN Creatinine Estimated Creat Clear Estimated GFR Est GFR ( Amer) Glucose Calcium Magnesium Total Bilirubin AST ALT Alkaline Phosphatase Troponin I Total Protein Albumin Globulin Albumin/Globulin Ratio Stl Aeromonas (PCR) Not detected Stl C. cayetanensis PCR Not detected Stool Rotavirus (PCR) Not detected Stl Adenov F 40/41 PCR Not detected Stool Astrovirus (PCR) Not detected Stool Campylobacter PCR Detected A Stl C.difficile Tox PCR Not detected Stool Cryptosporidium PCR Detected A Stl E.coli Shiga Tox PCR Not detected Stool E coli O157 PCR Not detected Stl Enterotoxigenic E PCR Not detected Stool EPEC (PCR) Not detected Stool EAEC (PCR) Not detected Stl E. histolytica PCR Not detected Stool Giardia Lamblia PCR Not detected Stool Salmonella PCR Detected A Stool Sapovirus (PCR) Not detected Stl P. shigelloides PCR Not detected Stl Shigella/EIEC PCR Not detected St Y.enterocolitica PCR Not detected Stool Vibrio (PCR) Not detected Stl Vibrio cholerae PCR Not detected Stl Norovirus GI/GII PCR Not detected Hepatitis C Antibody Non reactive DS: Diagnosis Discharge Diagnosis (1) Diarrhea due to cryptosporidium: Status: Acute Code(s): A07.2 - Cryptosporidiosis (2) Infection, salmonella: Status: Acute Code(s): A02.9 - Salmonella infection, unspecified (3) Campylobacter diarrhea: Status: Acute Code(s): A04.5 - Campylobacter enteritis (4) Colitis: Status: Acute Code(s): K52.9 - Noninfective gastroenteritis and colitis, unspecified (5) Dehydration, moderate: Status: Acute Code(s): E86.0 - Dehydration (6) Hypokalemia: Status: Acute Code(s): E87.6 - Hypokalemia (7) SACHIN (acute kidney injury): Status: Acute Code(s): N17.9 - Acute kidney failure, unspecified (8) Nausea vomiting and diarrhea: Status: Acute Code(s): R11.2 - Nausea with vomiting, unspecified; R19.7 - Diarrhea, unspecified Meds Home Medications and Allergies Home Medications ?Medication ?Instructions ?Recorded ?Confirmed ?Type amlodipine 5 mg tablet 5 mg PO DAILY #90 tabs 11/01/23 04/20/24 Rx temazepam 15 mg capsule 15 mg PO HS PRN sleep #30 caps 04/03/24 04/20/24 Rx tirzepatide (weight loss) 10 10 mg (0.5 mL) SQ WEEKLY #2.5 mL 04/06/24 04/20/24 Rx mg/0.5 mL subcutaneous pen injector (Zepbound) gabapentin 300 mg capsule 300 mg PO HS #90 caps 04/19/24 04/20/24 Rx lisinopril 20 mg tablet 20 mg PO DAILY 04/20/24 04/20/24 History ciprofloxacin HCl 500 mg tablet 500 mg PO BID 6 days #12 tabs 04/21/24 Rx (Cipro) prochlorperazine maleate 10 mg 10 mg PO TID PRN nausea and 04/21/24 Rx tablet (Compazine) vomiting #20 tabs New Prescriptions to Start Prescriptions: ciprofloxacin HCl [Cipro] Jose Sanderson prochlorperazine maleate [Compazine] Jose Sanderson Allergies Allergy/AdvReac Type Severity Reaction Status Date / Time No Known Allergies Allergy Verified 04/20/24 14:08 Discharge Plan Disposition Patient Disposition: Home, Self-Care Condition: Fair Follow up Plan Follow up with: Joseph Patel MD [Primary Care Provider] - 04/26/24 Prescriptions/Medication Reconciliation: New ciprofloxacin HCl [Cipro] 500 mg tablet 500 mg PO BID 6 Days Qty: 12 0RF prochlorperazine maleate [Compazine] 10 mg tablet 10 mg PO TID PRN (Reason: nausea and vomiting) Qty: 20 0RF Continued amlodipine 5 mg tablet 5 mg PO DAILY Qty: 90 1RF temazepam 15 mg capsule 15 mg PO HS PRN (Reason: sleep) Qty: 30 0RF gabapentin 300 mg capsule 300 mg PO HS Qty: 90 0RF lisinopril 20 mg tablet 20 mg PO DAILY Rx Instructions: Take 1 tablet by mouth once daily Held Zepbound 10 mg/0.5 mL pen injector 10 mg SQ WEEKLY Qty: 2.5 2RF Hold Instructions: Resume on 04/28/24. Hold this medication until your symptoms completely resolved. Problem Reconciliation Problems Reviewed?: Yes Patient Discharge Instructions Patient Instructions: Nausea (Alternative Therapy), Diarrhea (Alternative Therapy), Diarrhea, Nausea and Vomiting-Adult Print Language: Vietnamese Providers Primary Care Provider: Joseph Patel Admit Provider: Jose Sanderson Attending Provider: Jose Sanderson
--- NOTE | 2024-04-24 12:28 | CARE MANAGER ---
Unable to reach patient to discuss recent discharge. Call attempted x 2 and no VM available.
== END 2024-04-21 12:40 | disposition home or self-care (01) ==
LOC: ER 12:33 → 2ND 13:00
PROVIDERS: Admitting Provider Student in an Organized Health Care Education/Training Program; Emergency Provider Student in an Organized Health Care Education/Training Program; PCP Internal Medicine; Visit Provider Student in an Organized Health Care Education/Training Program
DX: A04.5 Campylobacter enteritis (principal); A04.8 Other specified bacterial intestinal infections; R11.2 Nausea with vomiting, unspecified; E87.6 Hypokalemia; N20.0 Calculus of kidney; N28.89 Other specified disorders of kidney and ureter; I10 Essential (primary) hypertension; Z79.85 Long-term (current) use of injectable non-insulin antidiabetic drugs
CPT/HCPCS: 36415; 74177; 80053; 83605; 83690; 83735; 84484; 85025; 86803; 87389; 87507; 87636; 93005; 99285; G0378; J0780; J1171; J1650; J1956; J2270; J2405; J3480; J7030; Q9967

== ENCOUNTER 2024-04-24 11:55 | Outpatient (CLI) | payer BC, SELFPAY ==
[2024-04-24 12:58] LABS: Anion Gap 13.7 mEq/L (5-15); Blood Urea Nitrogen 12 mg/dl (9-20); Carbon Dioxide 24 mmol/L (22.0-30.0); Chloride 105 mmol/L (98-107); Estimated Glomerular Filt Rate 87 ml/min (>60); GFR (African American) 105 ML/MIN (>60); Glucose 78 mg/dl (74-100); Potassium 3.7 mmoL/L (3.5-5.1); Sodium 139 mmol/L (136-145)
== END 2024-04-24 23:59 | disposition home or self-care (01) ==
LOC: LAB.DROPOF 11:55
PROVIDERS: PCP Internal Medicine; Visit Provider Internal Medicine
DX: N17.9 Acute kidney failure, unspecified (principal); A02.9 Salmonella infection, unspecified; A04.5 Campylobacter enteritis; E87.6 Hypokalemia
CPT/HCPCS: 80048

== ENCOUNTER 2024-09-04 04:53 | Emergency (ER) | payer BC, SELFPAY ==
[2024-09-04 04:59] VITALS: BP 146/82; PULSE 90; RESP 20; TEMP 37.2; O2SAT 100; BMI 26.4
--- NOTE | 2024-09-04 05:11 | CT_ITS ---
PROCEDURE INFORMATION: Exam: CT Abdomen And Pelvis With Contrast Exam date and time: 09/04/2024 5:36 AM Age: 59 years old Clinical indication: Abdominal pain; Flank; Right; Additional info: Right flank pain acute severe TECHNIQUE: Imaging protocol: Computed tomography of the abdomen and pelvis with contrast. Radiation optimization: All CT scans at this facility use at least one of these dose optimization techniques: automated exposure control; mA and/or kV adjustment per patient size (includes targeted exams where dose is matched to clinical indication); or iterative reconstruction. Contrast material: ISOVUE; Contrast volume: 75 ml; Contrast route: IV; COMPARISON: CT ABDOMEN PELVIS W CON 04/20/2024 10:51 AM FINDINGS: Liver: Normal. No mass. Gallbladder and biliary ducts: Cholecystectomy. Pancreas: Normal. No ductal dilation. Spleen: Normal. No splenomegaly. Adrenal glands: Normal. No mass. Kidneys and ureters: 6 mm stone at the right UVJ with moderate right-sided hydronephrosis and hydroureter as well as delayed enhancement of the right kidney. An additional 9 mm stone is seen in the right renal collecting system. Small intrarenal stones are noted on the left, no evidence of left-sided obstruction. Stomach and bowel: Gastric bypass surgery. Appendix: No evidence of appendicitis. Intraperitoneal space: Unremarkable. No free air. No significant fluid collection. Vasculature: Unremarkable. No abdominal aortic aneurysm. Lymph nodes: Unremarkable. No enlarged lymph nodes. Urinary bladder: Unremarkable as visualized. Reproductive: Unremarkable as visualized. Bones/joints: Unremarkable. No acute fracture. Soft tissues: Unremarkable. IMPRESSION: 1. 6 mm stone at the right UVJ with moderate right-sided hydronephrosis and hydroureter as well as delayed enhancement of the right kidney. An additional 9 mm stone is seen in the right renal collecting system. 2. Small intrarenal stones are noted on the left, no evidence of left-sided obstruction. 3. Cholecystectomy. 4. Gastric bypass surgery.
--- NOTE | 2024-09-04 05:14 | [facility].EDGENADL ---
Discharge Plan Disposition Patient Disposition: Home, Self-Care Condition: Fair Prescriptions Prescriptions: New tamsulosin 0.4 mg capsule 0.4 mg PO HS Qty: 14 0RF ondansetron 4 mg tablet,disintegrating 4 mg PO Q6H PRN (Reason: nausea and vomiting) Qty: 12 0RF hydrocodone-acetaminophen 5-325 mg tablet 1 tab PO Q6H PRN (Reason: pain) Qty: 10 0RF No Action amlodipine 5 mg tablet See Rx Instructions .ROUTE .COMPLEX Qty: 90 1RF Dose Instruction: Take 1 tablet by mouth once daily Rx Instructions: Take 1 tablet by mouth once daily lisinopril 20 mg tablet See Rx Instructions .ROUTE .COMPLEX Qty: 90 1RF Dose Instruction: Take 1 tablet by mouth once daily Rx Instructions: Take 1 tablet by mouth once daily hydrocodone-acetaminophen 5-325 mg tablet 1 tab PO Q4-6H PRN (Reason: pain) Qty: 10 0RF Zepbound 10 mg/0.5 mL pen injector See Rx Instructions .ROUTE .COMPLEX Qty: 4 2RF Dose Instruction: INJECT 1 SYRINGE SUBCUTANEOUSLY ONCE A WEEK Rx Instructions: INJECT 1 SYRINGE SUBCUTANEOUSLY ONCE A WEEK gabapentin 300 mg capsule 300 mg PO HS Qty: 90 0RF temazepam 15 mg capsule 15 mg PO HS PRN (Reason: sleep) Qty: 30 0RF prochlorperazine maleate [Compazine] 10 mg tablet 10 mg PO TID PRN (Reason: nausea and vomiting) Qty: 20 0RF Referrals Follow up/Referrals: Joseph Patel MD [Primary Care Provider] - See instructions Maximino Ledbetter MD [Referring] - See instructions (R UVJ stone 5-6mm, should pass on its own but has additional intrarenal stones, massive R side hydro but good kidney function. Please see urgently for close follow up) Activity Restrictions/Add. Instructions Additional Instructions/Restrictions: Your evaluated in the ER and are believed to be appropriate for discharge at this time. Take the prescribed tamsulosin as directed to help pass the stone. Increase your water intake to maintain good hydration and encourage the stone to pass. Urinate through the strainer to capture the stone if it passes. Take the prescribed Zofran if needed for nausea and vomiting. Take Tylenol and ibuprofen if needed for pain, if these do not control your pain, then take the hydrocodone if needed for severe, uncontrolled pain. Hydrocodone is addictive, only take it as directed. Do not drive or operate machinery after taking it. It may cause constipation, so you can take a stool softener or mild laxative with it if needed to avoid this side effect. Call Dr. Ledbetter's urology office first thing today and make an appointment for immediate outpatient follow-up. Also call Dr. Patel's office and make an appointment for close follow-up and to recheck your kidney function labs. Return to the ER immediately with any new, worsening, or otherwise concerning symptoms including but not limited to infectious symptoms like fever, painful urination, or worsening pain, decreased urine output, or unrelenting symptoms. Clinical Impressions Clinical Impression: Kidney stones, Hydronephrosis, Hydroureter Stand Alone Forms Stand Alone Forms: Work/School Release Instructions Patient Instructions: DI for Acute Abdominal Pain, Kidney Stones -- Adult, DI for Kidney Stones Print Language Print Language: [place] Discharge ED Provider: Hiro Cid General Adult HPI General Chief complaint: Abdominal Pain Stated complaint: possible kidney stone Time Seen by Provider: 09/04/24 05:10 Mode of Arrival: Ambulatory Source of Information: Patient Description of Symptoms (Recalled from ER Triage Doc. by RN): Pt reports at approx 0130 this date he began having 8/10 right flank pain. Pt also reports nausea and vomiting. History of Present Illness HPI narrative: 59-year-old male with history of previous kidney stones presents to the ER with acute right flank pain. Around 130 this morning he started having 8 out of 10 right flank pain, it has moved down and he describes it now mostly in the hip. He also reports nausea and vomiting. No dysuria or hematuria but states he has not had significant urine output since the pain started. No fevers or chills. Patient reports he independently passed a kidney stone a few weeks ago. No other complaints or concerns. No recent illness. Related Data Previous Rx's ?Medication ?Instructions ?Recorded prochlorperazine maleate 10 mg 10 mg PO TID PRN nausea and 04/21/24 tablet (Compazine) vomiting #20 tabs amlodipine 5 mg tablet See Rx Instructions .Route 04/30/24 .COMPLEX #90 tabs lisinopril 20 mg tablet See Rx Instructions .Route 04/30/24 .COMPLEX #90 tabs hydrocodone 5 mg-acetaminophen 325 1 tab PO Q4-6H PRN pain #10 tabs 05/01/24 mg tablet tirzepatide (weight loss) 10 See Rx Instructions .Route 06/29/24 mg/0.5 mL subcutaneous pen .COMPLEX #4 mL injector (Zepbound) gabapentin 300 mg capsule 300 mg PO HS #90 caps 08/03/24 temazepam 15 mg capsule 15 mg PO HS PRN sleep #30 caps 08/03/24 hydrocodone 5 mg-acetaminophen 325 1 tab PO Q6H PRN pain #10 tabs 09/04/24 mg tablet ondansetron 4 mg disintegrating 4 mg PO Q6H PRN nausea and 09/04/24 tablet vomiting #12 tabs tamsulosin 0.4 mg capsule 0.4 mg PO HS #14 caps 09/04/24 Allergies Allergy/AdvReac Type Severity Reaction Status Date / Time No Known Allergies Allergy Verified 08/07/24 16:32 [facility] Disclaimer: The information contained in this section may have been updated after the patient was seen, as this information can be updated by other users. Medical History (Updated 09/04/24 @ 06:19 by Hiro Cid MD) Near syncope Vasovagal syncope Dehydration, moderate Hypokalemia SACHIN (acute kidney injury) Nausea vomiting and diarrhea Syncope Laceration of left ring finger Obesity (BMI 30-39.9) Ureterolithiasis Neuralgia of right lower extremity Pain of right knee and lower leg Encounter for screening for malignant neoplasm of prostate Cutaneous abscess of neck Nausea & vomiting Hydronephrosis concurrent with and due to calculi of kidney and ureter Right ureteral calculus Restless leg syndrome Hypertension Fatigue Kidney calculi Surgical History History of appendectomy History of Dayana-en-Y gastric bypass Family History Other Family history of hypertension Prostate cancer Social History Smoking Status: Never smoker alcohol intake: never counseling provided: none current occupational status: employed Travel in the last 8 weeks?: None Have you lived/traveled outside [place] in past 30 days?: No Contact w/someone who lives/traveled outside US past 30 days?: No Exposure to someone with infectious disease in past 14 days?: No Do you have a fever (greater than 100.4 F or 38 C)?: No Have you tested positive for COVID-19?: No Exposed to someone with COVID-19 in past 14 days?: No Do you have a sore throat?: No Do you have a cough?: No Do you have any weakness?: No Do you have any diarrhea?: No Are you experiencing any unusual bleeding?: No Do you have any muscle aches/pain?: No Do you have any abdominal pain?: Yes Are you experiencing loss of taste or smell?: No Other Medical History Have you received the Flu Vaccine for this season: No Have you received the Pneumonia Vaccine: No ROS Obtained: Yes Systems reviewed as appropriate & no additional complaints except as documented Per HPI Physical Exam General General appearance: alert and in no apparent distress Head Head exam: atraumatic and normocephalic Eye Eye exam: Present PERRL and EOMI ENT ENT exam: Present mucous membranes moist Neck Neck exam: Present normal inspection and full ROM Chest Chest inspection: Present symmetric chest wall rise; Absent tenderness Respiratory Respiratory exam: Present normal lung sounds bilaterally; Absent respiratory distress, wheezes or stridor Cardiovascular Cardiovascular exam: Present regular rate and normal rhythm Abdominal Exam Abdominal exam: Present soft; Absent distention or tenderness Extremities Exam Extremities exam: Present full ROM Back Exam Back exam: Present CVA tenderness (R) (Low right CVA); Absent tenderness or CVA tenderness (L) Neurological Exam Neurological exam: Present alert and oriented X3; Absent motor sensory deficit Psychiatric Psychiatric exam: Present normal affect and normal mood Skin Skin exam: Present warm and dry Medical Decision Making Medical Records Medical records reviewed: Yes I reviewed the patient's medical records. Screening: Per USPSTF and CDC recommendations, given the prevalence of disease in our region, it is our hospital?s policy to screen for HIV and viral Hepatitis for all patients aged 18 and over and those with ongoing risk factors. MR Comment: Patient was found to have intrarenal stones on CT scan in April [place] Inquiry Pt receiving controlled substance: No Vital Signs: 09/04/24 04:59 09/04/24 05:28 09/04/24 05:30 Temperature 98.9 F Temperature Source Oral Pulse Rate 72 77 Pulse Rate [Left] 90 Respiratory Rate 20 Blood Pressure 145/92 H 136/90 Blood Pressure [Right Arm] 146/82 H Blood Pressure Mean [Right Arm] 103 Blood Pressure Source Blood Pressure Source [Right Arm] Automatic Cuff Blood Pressure Position 02 Sat by Pulse Oximetry 100 100 100 Oxygen Delivery Method Room Air Room Air Room Air 09/04/24 05:55 09/04/24 06:03 Temperature 97.5 F L Temperature Source Oral Pulse Rate 90 71 Pulse Rate [Left] Respiratory Rate 16 Blood Pressure 136/90 133/80 Blood Pressure [Right Arm] Blood Pressure Mean [Right Arm] Blood Pressure Source Automatic Cuff Blood Pressure Source [Right Arm] Blood Pressure Position Sitting 02 Sat by Pulse Oximetry 97 Oxygen Delivery Method Room Air Room Air Lab Data Lab Results 09/04/24 05:00: WBC 5.9, RBC 4.85, Hgb 13.4 L, Hct 41.3 L, MCV 85.2, MCH 27.6, MCHC 32.4, RDW 14.6, Plt Count 235, MPV 9.9, Neut % (Auto) 57.2, Lymph % (Auto) 28.2, [place] % (Auto) 9.1, Eos % (Auto) 4.0, Baso % (Auto) 1.2, Neut # (Auto) 3.4, Lymph # (Auto) 1.7, [place] # (Auto) 0.5, Eos # (Auto) 0.2, Baso # (Auto) 0.1, PT 10.9, INR 0.98, Sodium 139, Potassium 3.7, Chloride 108 H, Carbon Dioxide 24, Anion Gap 10.7, BUN 16, Creatinine 1.00, Estimated Creat Clear 105, Estimated GFR 77, Est GFR ( Amer) 93, Glucose 112 H, Calcium 9.2, Total Bilirubin 0.9, AST 33, ALT 25, Alkaline Phosphatase 91, Total Protein 6.8, Albumin 4.4, Globulin 2.4, Albumin/Globulin Ratio 1.8 09/04/24 06:02: Urine Color Yellow, Urine Appearance Clear, Urine pH 6.5, Ur Specific [place] 1.010, Urine Protein 1+ A, Urine Glucose (UA) Negative, Urine Ketones Trace, Urine Blood 3+ A, Urine Nitrate Negative, Urine Bilirubin Negative, Urine Urobilinogen 0.2, Ur Leukocyte Esterase Negative, Urine RBC Tntc, Urine WBC 3-5, Ur Squamous Epith Cells 3-5, Calcium Oxalate Crystal 1+, Urine Bacteria 1+ 09/04/24 05:00 09/04/24 05:00 Orders (Tests/Meds): ED MEDICATIONS Generic Name Dose Route Start Last Admin Trade Name Eligio PRN Reason Stop Dose Admin Sodium Chloride 10 ml 09/04/24 05:43 09/04/24 05:44 Sodium Chloride 0.9% 10ml Syr (Rad Only) IV 10/04/24 05:42 10 ml NEEDED PRN Administration Maintain IV Site Discontinued Medications Generic Name Dose Route Start Last Admin Trade Name Eligio PRN Reason Stop Dose Admin Lactated Ringer's 1,000 mls @ 999 mls/hr 09/04/24 05:11 09/04/24 05:22 Lactated Ringer's 1000 Ml Bag IV 09/04/24 06:11 999 mls/hr .Q1H1M ONE Administration Iopamidol 75 ml 09/04/24 05:43 09/04/24 05:44 Iopamidol-370 (76%);100ml Bottle IV 09/04/24 05:44 75 ml ONCE ONE Administration Ketorolac Tromethamine 30 mg 09/04/24 05:11 09/04/24 05:22 Ketorolac 30mg/Ml Vial IV 09/04/24 05:12 30 mg ONCE ONE Administration Morphine Sulfate 4 mg 09/04/24 05:11 09/04/24 05:22 Morphine 4mg/Ml Syringe IV 09/04/24 05:12 4 mg ONCE ONE Administration Ondansetron HCl 4 mg 09/04/24 05:11 09/04/24 05:22 Ondansetron 4mg/2ml Vial IV 09/04/24 05:12 4 mg ONCE ONE Administration Tamsulosin HCl 0.4 mg 09/04/24 05:53 09/04/24 06:06 Tamsulosin 0.4mg Capsule PO 09/04/24 05:54 0.4 mg ONCE ONE Administration ORDERS Category Date Time Status CT abdomen pelvis w con Stat Cat Scan 09/04/24 05:11 Completed CBC w/Auto Diff [Complete Blood Count Auto Diff] Stat Lab 09/04/24 05:00 Completed CMP [Comprehensive Metabolic Panel] Stat Lab 09/04/24 05:00 Completed Lactic Acid Stat Lab 09/04/24 05:11 Ordered PT INR [Prothrombin Time INR] Stat Lab 09/04/24 05:00 Completed Urinalysis and Microscopic Stat Lab 09/04/24 06:02 Completed Medical Decision Narrative: In summary, this 59-year-old male with comorbidities described in the HPI which may not be at goal therapy presents to the emergency department today with right flank pain moving into the hip. On initial evaluation patient is hemodynamically stable, afebrile, low right CVA tenderness, no abdominal tenderness, no rebound or guarding. Differential diagnosis includes but is not limited to nephrolithiasis, ureterolithiasis, hydroureter, hydronephrosis, kidney dysfunction, urinary tract infection, also considered the possibility of appendicitis, cholecystitis, cholelithiasis, among other intra-abdominal pathology but I have highest suspicion for pathology related to kidney stones since patient has a recent history of this. Based on these concerns, I ordered serum labs, urine studies, CT. Patient received Toradol, morphine, Zofran, IV fluids initially for symptom management. Labs personally reviewed demonstrate no leukocytosis, mild anemia, PT/INR normal, CMP nonactionable, UA negative for findings of infection however patient does have too numerous to count red blood cells, he only has trace WBCs and 1+ bacteria contaminated with squamous cells so I have very low suspicion for associated urinary infection. I believe the findings in the urine are related to inflammation from kidney stone. CT abdomen pelvis personally interpreted demonstrates large right intrarenal stone in the renal pelvis, 5 to 6 mm stone at the right UVJ, significant right sided hydronephrosis. See radiology read for final interpretation. On reassessment patient's pain is significantly improved since receiving medications in the ER. Tamsulosin was administered. UA is reassuring against infected stone. I discussed transfer for acute management since patient has significant hydronephrosis versus outpatient management since patient does not yet have kidney dysfunction. Patient would prefer outpatient management at this time since his son graduates this weekend he would like to avoid being in the hospital which is very understandable. Patient is very reasonable and I believe he is reliable. I gave him a prescription for tamsulosin as well as for Zofran and hydrocodone. I gave him strict instructions to drink plenty of fluids to help pass the stone and take the medications as directed to optimize him to pass it. He was also provided a strainer to urinate through to capture the stone. I instructed him that if he does not have improvement in 24 to 48 hours he absolutely needs to return to the ER for further evaluation and likely urologic treatment. He understands this. Patient was given referral to Dr. Ledbetter for urology follow-up. He was also given instructions on close follow-up with his PCP. Additionally I gave him strict return precautions for the ER with any new, worsening, or otherwise concerning symptoms including but not limited to infectious symptoms such as painful urination, fevers, or worsening pain, vomiting, no improvement of symptoms in the outlined timeframe. He indicated understanding. He was discharged in stable condition. His son was able to pick him up from the ER and drive him home. Son was provided a note excusing him from tardiness through first period of school today if needed due to helping his father get home. Critical Care Critical Care Time Critical Care Time: No
[2024-09-04 05:18] LABS: Basophils # 0.1 K/mm3 (0-0.2); Basophils % 1.2 % (0.1-2.0); Eosinophils # 0.2 Kmm3 (0.0-0.4); Hematocrit 41.3 % (42.0-52.0); Hemoglobin 13.4 g/dL (14.1-18.0); Immature Granulocytes # 0.02 10^3uL; Immature Granulocytes % 0.3 %; Lymphocytes # 1.7 K/mm3 (0.7-4.5); Lymphocytes % 28.2 % (10-50); Mean Corpuscular HGB Conc 32.4 g/dL (31.8-35.4); Mean Corpuscular Hemoglobin 27.6 pg (27.0-31.2); Mean Corpuscular Volume 85.2 fl (80-94); Mean Platelet Volume 9.9 fl (7.4-10.4); Monocytes # 0.5 K/mm3 (0.1-1.0); Monocytes % 9.1 % (1.7-9.3); Neutrophils # 3.4 K/mm3 (1.8-7.8); Neutrophils % 57.2 % (37.0-80.0); Nucleated Red Blood Cells # 0 10^3/uL; Nucleated Red Blood Cells % 0 %; Platelet Count 235 K/mm3 (142-424); Red Blood Count 4.85 M/mm3 (4.60-6.20); Red Cell Distribution Width 14.6 % (11.5-17.5); Red Cell Distribution Width-SD 45.5 fL; White Blood Count 5.9 K/mm3 (4.8-10.8)
[2024-09-04 05:21] LABS: Albumin Level 4.4 g/dl (3.5-5.0); Chloride 108 mmol/L (98-107); Potassium 3.7 mmoL/L (3.5-5.1); Sodium 139 mmol/L (136-145)
[2024-09-04] MEDS: MORPHINE 4MG/ML SYRINGE 4 MG IV (05:22)
[2024-09-04] MEDS: ONDANSETRON 4MG/2ML VIAL 4 MG IV (05:22)
[2024-09-04] MEDS: LACTATED RINGERS 1000ML 1,000 ML 999 ML IV (05:22)
[2024-09-04] MEDS: KETOROLAC 30MG/ML VIAL 30 MG IV (05:22)
[2024-09-04 05:24] LABS: Alanine Aminotransferase 25 U/L (12-78); Albumin/Globulin Ratio 1.8 (1.1-1.8); Alkaline Phosphatase 91 U/L (38-126); Anion Gap 10.7 mEq/L (5-15); Aspartate Amino Transferase 33 U/L (17-59); Bilirubin,Total 0.9 mg/dl (0.2-1.3); Blood Urea Nitrogen 16 mg/dl (9-20); Calcium 9.2 mg/dl (8.4-10.2); Carbon Dioxide 24 mmol/L (22.0-30.0); Creatinine Clearance Estimated 105 mL/min (50-200); Estimated Glomerular Filt Rate 77 ml/min (>60); GFR (African American) 93 ML/MIN (>60); Globulin 2.4 g/dL (1.3-3.2); Glucose 112 mg/dl (74-100); Total Protein,Serum 6.8 g/dl (6.3-8.2)
[2024-09-04 05:25] LABS: INR 0.98 (0.9-1.1); Prothrombin Time 10.9 seconds (10.1-12.5)
[2024-09-04 05:28] VITALS: BP 145/92; PULSE 72; O2SAT 100
[2024-09-04 05:30] VITALS: BP 136/90; PULSE 77; O2SAT 100
[2024-09-04] MEDS: IOPAMIDOL-370 (76%);100ML BOTTLE 75 ML IV (05:44)
[2024-09-04] MEDS: SODIUM CHLORIDE 0.9% 10ML SYR (RAD ONLY) 10 ML IV (05:44)
[2024-09-04 06:03] VITALS: BP 133/80; PULSE 71; O2SAT 97
[2024-09-04] MEDS: TAMSULOSIN 0.4MG CAPSULE 0.4 MG PO (06:06)
[2024-09-04 06:07] LABS: Microscopic, Urine URINE MICROSCOPIC (MICROSCOPIC)
[2024-09-04 06:16] LABS: Appearance,Urine CLEAR (Clear); Bilirubin,Urine Negative (Negative); Blood, Urine 3+ (Negative); Color,Urine YELLOW (Yellow); Glucose,Urine (UA) Negative (Negative); Ketones,Urine TRACE (Negative); Leukocyte Esterase,Urine Negative (Negative); Nitrate,Urine Negative (Negative); PH,Urine 6.5 (5.0-8.5); Protein,Urine 1+ (Negative); Urobilinogen,Urine 0.2 EU/dl (0.2)
[2024-09-04 06:21] LABS: Bacteria,Urine 1+ /lpf; Calcium Oxalate Crystals,Urine 1+ /lpf; RBC,Urine TNTC #/hpf (0-3)
[2024-09-04 06:34] VITALS: BP 134/89; PULSE 72; O2SAT 100
[2024-09-04 06:39] VITALS: BP 136/90; PULSE 90; RESP 16; TEMP 36.4; O2SAT 99
== END 2024-09-04 07:15 | disposition home or self-care (01) ==
PROVIDERS: Emergency Provider Emergency Medicine; PCP Internal Medicine
DX: N13.0 Hydronephrosis with ureteropelvic junction obstruction (principal); N13.4 Hydroureter; R10.31 Right lower quadrant pain; R11.2 Nausea with vomiting, unspecified; N20.0 Calculus of kidney
CPT/HCPCS: 51798; 74177; 80053; 81001; 85025; 85610; 96361; 96374; 96375; 99285; J1885; J2270; J2405; J7120; Q9967

== ENCOUNTER 2025-02-12 16:15 | Outpatient (CLI) | payer BC, SELFPAY ==
[2025-02-12 17:07] LABS: Hematocrit 39.6 % (42.0-52.0); Hemoglobin 12.4 g/dL (14.1-18.0); Immature Granulocytes % 0.2 %; Mean Corpuscular HGB Conc 31.3 g/dL (31.8-35.4); Mean Corpuscular Hemoglobin 28.1 pg (27.0-31.2); Mean Corpuscular Volume 89.8 fl (80-94); Nucleated Red Blood Cells % 0 %; Platelet Count 269 K/mm3 (142-424); Red Blood Count 4.41 M/mm3 (4.60-6.20); Red Cell Distribution Width-SD 45.9 fL; Reticulocyte % (Auto) 1.0 % (0.9-3.2); White Blood Count 5.7 K/mm3 (4.8-10.8)
[2025-02-12 18:52] LABS: Alanine Aminotransferase 22 U/L (12-78); Albumin Level 3.2 g/dl (3.5-5.0); Albumin/Globulin Ratio 0.9 (1.1-1.8); Alkaline Phosphatase 93 U/L (38-126); Anion Gap 9.0 mEq/L (5-15); Aspartate Amino Transferase 29 U/L (17-59); Bilirubin,Total 0.7 mg/dl (0.2-1.3); Blood Urea Nitrogen 15 mg/dl (9-20); Calcium 8.9 mg/dl (8.4-10.2); Carbon Dioxide 30 mmol/L (22.0-30.0); Chloride 102 mmol/L (98-107); Creatinine,Serum 0.90 mg/dl (0.66-1.25); Estimated Glomerular Filt Rate 87 ml/min (>60); GFR (African American) 105 ML/MIN (>60); Globulin 3.4 g/dL (1.3-3.2); Glucose 80 mg/dl (74-100); HDL Cholesterol 55 mg/dl (40-60); Potassium 4.0 mmoL/L (3.5-5.1); Sodium 137 mmol/L (136-145); Total Protein,Serum 6.6 g/dl (6.3-8.2)
[2025-02-12 19:42] LABS: Vitamin B12 < 159 pg/mL (239-931)
[2025-02-12 20:08] LABS: Cholesterol 140 mg/dl (140-200); Triglycerides 60 mg/dl (30-150)
== END 2025-02-12 23:59 ==
LOC: LAB.DROPOF 02-13 12:26
PROVIDERS: PCP Internal Medicine; Visit Provider Internal Medicine
DX: D64.9 Anemia, unspecified (principal); I10 Essential (primary) hypertension; Z12.5 Encounter for screening for malignant neoplasm of prostate; N20.0 Calculus of kidney; E78.5 Hyperlipidemia, unspecified
CPT/HCPCS: 80053; 80061; 82607; 85025; 85044; G0103